=== PATIENT | male | born 1955 ===

== ENCOUNTER 2018-07-18 06:08 | Day surgery (SDC) | payer BC ==
[2018-06-22 10:07] VITALS: BMI 25.0
[2018-07-18] MEDS ORDERED: ceFAZolin 1 gm in NS 1 GM/100 ML BAG IVPB ONE (06:58)
[2018-07-18] MEDS ORDERED: Iohexol 240 (50 ml) ONE (06:58)
[2018-07-18] MEDS ORDERED: Propofol 10 mg/ml Inj (20 ML) ONE (07:50)
[2018-07-18] MEDS ORDERED: Midazolam 2 MG/2 ML VIAL ONE (07:50)
[2018-07-18] MEDS ORDERED: Succinylcholine Chloride 20 mg/ml Syr (5 ml) IV ONE (07:52)
--- NOTE | 2018-07-18 09:59 | PCM.SURG1 ---
Surgeon's Initial Post Op Note - Surgeon's Notes Surgeon: Dr. Davidson Director Traffic And Planning: Estela PGY2 Type of Anesthesia: General Endo Anesthesia Administered By: Dr. Lewis Pre-Operative Diagnosis: Cholelithiasis, chronic cholecystitis Operative Findings: Cholelithiasis, adhesions to liver Post-Operative Diagnosis: Cholelithiasis, chronic cholecystitis Operation Performed: Laparoscopic Cholecystectomy with IOC Specimen/Specimens Removed: Gallbladder with stones Estimated Blood Loss: EBL {In ML}: 10 Blood Products Given: N/A Drains Used: No Drains Post-Op Condition: Good Date of Surgery/Procedure: 07/18/18 Time of Surgery/Procedure: 09:59
[2018-07-18] MEDS ORDERED: Oxycodone/Acetaminophen 5/325 mg Tab PO PRN (10:00)
[2018-07-18] MEDS ORDERED: Lactated Ringer's 1,000 ML IV SCH (10:00)
[2018-07-18] MEDS: HYDROmorphone 0.5 mg/0.5 ml ISec IVP PRN ×3 (10:15→10:32)
[2018-07-18] MEDS ORDERED: Lactated Ringer's 1,000 ML IV ONE (10:25)
[2018-07-18 11:44] VITALS: RESP 18; O2SAT 95
--- NOTE | 2018-07-18 15:15 | RAD ---
Date of service: 07/18/2018 PROCEDURE: Intraoperative Fluoroscopy. HISTORY: CHOLECYSTITIS FINDINGS: Fluoroscopic assistance was provided for intraoperative cholangiogram. Please refer to the operative report from MITA Ross. Total fluoroscopic time (continuous mode) utilized during the procedure 49.2 seconds. Dose report: DLP [id number] (mGy/m2)
[2018-07-18 15:48] VITALS: BP 154/86; PULSE 82; TEMP 98
--- NOTE | 2018-07-18 20:45 | OP ---
PROCEDURE DATE: 07/18/2018 PREOPERATIVE DIAGNOSES: Cholecystitis, cholelithiasis. POSTOPERATIVE DIAGNOSES: Cholecystitis, cholelithiasis. PROCEDURE CARRIED OUT: Laparoscopic cholecystectomy with C-arm cholangiogram. SURGEON: Emmett Davidson Jr., MD HAND COPER: Alfred Palmer DO ANESTHESIA ADMINISTERED BY: . INDICATIONS: The patient is a middle-aged man with abdominal pain and subsequently found to have gallstones. OPERATIVE FINDINGS: 1. A cholangiogram carried out through the cystic duct showed free flow into the duodenum, visualization of the hepatic radicles, and no evidence of any stones or strictures. 2. The gallbladder was slightly inflamed with adhesions around it. 3. During the operation, there was spillage of stones from the gallbladder during its removal, these were diligently searched for and many of these retrieved in the suction fluid. The rest of the intraoperative findings were unremarkable. DESCRIPTION OF PROCEDURE: The patient was given general anesthesia, intravenous antibiotics, and Venodyne boots were applied. A Tanya trocar was inserted by a put-down technique. Two additional trocars were placed. The cystic duct and cystic artery were identified. After completion of the view of safety, these were clipped. An additional structure to the side which was thickened peritoneum, was also clipped. After this had been done, the gallbladder was removed. As I mentioned, there was spillage of bile and stones which were thoroughly irrigated and all the stones searched for and suctioned or actually physically retrieved. We then checked the liver bed for hemostasis which was excellent. We then removed the gallbladder from the abdominal wall in a bag and then we used the closure device to close the umbilicus for an airtight closure. Blood loss was less than 20 mL. OPERATION CARRIED OUT: Laparoscopic cholecystectomy with C-arm cholangiogram. Emmett Davidson Jr., MD cc:
== END 2018-07-18 15:20 | disposition home or self-care (01) ==
LOC: C.SDS 06:08
PROVIDERS: ATTEND Surgery Vascular Surgery
DX: K80.10 Calculus of gallbladder with chronic cholecystitis without obstruction (principal); I10 Essential (primary) hypertension; E78.5 Hyperlipidemia, unspecified; G47.33 Obstructive sleep apnea (adult) (pediatric)
CPT/HCPCS: 47563; 88304; J0690; J1170; J2250; J2405; J2704; J2765; J3010; J7040; J7120

== ENCOUNTER 2018-07-20 05:42 | Inpatient (IN) | payer BC ==
[2018-07-20 05:42] VITALS: BMI 25.0
--- NOTE | 2018-07-20 05:48 | C.PDOC ---
History Of Present Illness Patient presents to the ED c/o severe RUQ abdominal pain since last night. Patient reports having cholecystectomy done on 07/18, states last night he started feeling severe abdominal pain that did not get better after taking percocet. Patient denies fever, chills, nausea, vomit, diarrhea, rash, weakness, numbness. Time Seen by Provider: 07/20/18 05:47 History Per: Patient History/Exam Limitations: no limitations Onset/Duration Of Symptoms: Hrs Current Symptoms Are (Timing): Still Present Severity: Severe Pain Scale Rating Of: 7 Location Of Pain/Discomfort: RUQ Quality Of Discomfort: Sharp, Stabbing Associated Symptoms: denies: Nausea, Vomiting, Urinary Symptoms Recent travel outside of the [place]: No Additional History Per: Patient Past Medical History Reviewed: Historical Data, Nursing Documentation, Vital Signs - Medical History PMH: Asthma, Gall Bladder Disease, HTN, Hypercholesterolemia, Sleep Apnea (does not use c pap), TIA (3 years ago ) Denies: Chronic Kidney Disease Surgical History: Cholecystectomy Family History: States: Unknown Family Hx - Social History Hx Tobacco Use: No Hx Alcohol Use: No Hx Substance Use: No Review Of Systems Constitutional: Negative for: Fever, Chills Cardiovascular: Negative for: Chest Pain Respiratory: Negative for: Shortness of Breath Gastrointestinal: Positive for: Abdominal Pain. Negative for: Nausea, Vomiting Genitourinary: Negative for: Dysuria Musculoskeletal: Negative for: Back Pain Skin: Negative for: Rash Neurological: Negative for: Weakness, Numbness, Headache Physical Exam - Physical Exam Appears: Non-toxic, In Acute Distress Skin: Warm, Dry Head: Normacephalic Eye(s): bilateral: Normal Inspection Neck: Supple Chest: Symmetrical Cardiovascular: Rhythm Regular Respiratory: No Rales, No Rhonchi, No Wheezing Gastrointestinal/Abdominal: Soft, Tenderness (RUQ), No Guarding, No Rebound Back: No CVA Tenderness Extremity: Bilateral: Atraumatic, Normal Color And Temperature, Normal ROM Neurological/Psych: Oriented x3, Normal Speech, Normal Cognition Gait: Steady ED Course And Treatment - Laboratory Results Result Diagrams: 07/20/18 06:28 ECG: Interpreted By Me, Viewed By Me ECG Rhythm: Sinus Rhythm (81), Nonspecific Changes O2 Sat by Pulse Oximetry: 96 Pulse Ox Interpretation: Normal Progress Note: PLan: - VBG. - Labs. - Morphine 2 mg IVP. - IV fluids. - Zofran 4 mg IVP. - UA Disposition Counseled Patient/Family Regarding: Studies Performed, Diagnosis - Disposition Disposition Time: 05:48 Condition: FAIR - Clinical Impression Clinical Impression: Abdominal pain - Scribe Statement The provider has reviewed the documentation as recorded by the Scribe Josiah Hernandez All medical record entries made by the Scribe were at my direction and personally dictated by me. I have reviewed the chart and agree that the record accurately reflects my personal performance of the history, physical exam, medical decision making, and the department course for this patient. I have also personally directed, reviewed, and agree with the discharge instructions and disposition. Physician Patient Turnover Patient Signed Over To: Olga Lora Handoff Comments: pending labs, surgical consult and dispo
[2018-07-20] MEDS ORDERED: Sodium Chloride 0.9% 1,000 ML IV ONE (05:53)
[2018-07-20] MEDS ORDERED: Morphine 4 MG/ML VIAL ONE ×2 (06:12→07:35)
[2018-07-20 06:28] LABS: VENOUS BLOOD GAS BASE EXCESS -0.4 mmol/L (0.0-2.0); VENOUS BLOOD GAS PCO2 45 mmHg (40-60); VENOUS BLOOD GAS PO2 39 mm/Hg (30-55); VENOUS BLOOD PH 7.36 (7.32-7.43)
[2018-07-20 06:33] LABS: BASO # 0.1 K/uL (0.0-0.2); BASO % 0.4 % (0.0-2.0); EOS % 0.2 % (0.0-4.0); HEMOGLOBIN 15.1 g/dL (12.0-18.0); LYMPH # 0.9 K/uL (1.0-4.3); LYMPH % 5.7 % (20.0-40.0); MEAN CELL VOLUME 88.7 fL (80.0-94.0); MEAN CORPUSCULAR HEMOGLOBIN 28.6 pg (27.0-31.0); MEAN CORPUSCULAR HGB CONC 32.2 g/dL (33.0-37.0); MEAN PLATELET VOLUME 8.5 fL (7.2-11.7); MONO # 0.9 K/uL (0.0-0.8); MONO % 5.6 % (0.0-10.0); NEUT # 13.3 K/uL (1.8-7.0); NEUT % 88.1 % (50.0-75.0); PLATELET COUNT 171 K/uL (130-400); RBC 5.29 Mil/uL (4.40-5.90); RED CELL DISTRIBUTION WIDTH 14.2 % (11.5-14.5); WHITE BLOOD COUNT 15.1 K/uL (4.8-10.8)
[2018-07-20 06:52] LABS: BLOOD UREA NITROGEN 18 mg/dL (9-20); CALCIUM 9.2 mg/dl (8.6-10.4); GFR NON-AFRICAN AMERICAN > 60; LIPASE 44 U/L (23-300)
[2018-07-20 06:53] LABS: ALB/GLOB RATIO 1.2 (1.0-2.1); ALBUMIN 4.1 g/dL (3.5-5.0); ALT/SGPT 66 U/L (21-72); AST/SGOT 97 U/L (17-59)
[2018-07-20 07:50] LABS: EOSINOPHIL 1 % (0-4); LYMPHOCYTE 5 % (20-40); MONOCYTE 6 % (0-10); NEUTROPHIL 88 % (50-75); PLATELET ESTIMATE NORMAL (NORMAL); TOTAL CELLS COUNTED 100
[2018-07-20 08:21] LABS: SQUAMOUS EPITHIAL < 1 /hpf (0-5); URINE BILIRUBIN NEGATIVE (NEGATIVE); URINE BLOOD 1+ (NEGATIVE); URINE CLARITY Clear (Clear); URINE COLOR Yellow (YELLOW); URINE GLUCOSE (UA) NORMAL (Normal); URINE LEUKOCYTE ESTERASE NEG Leu/uL (Negative); URINE PROTEIN 1+ mg/dL (NEGATIVE)
[2018-07-20] MEDS ORDERED: Iodixanol 320 MG/ML 100 ML BOTTLE IV ONE (08:32)
--- NOTE | 2018-07-20 09:52 | CT ---
Date of service: 07/20/2018 PROCEDURE: CT Abdomen and Pelvis with contrast HISTORY: POSTOP PAIN AFTER LAP CHOLEY COMPARISON: None. TECHNIQUE: Following oral and intravenous contrast administration, a CT examination of the abdomen and pelvis was performed from the domes of the diaphragms to the symphysis pubis with reformatted datasets provided not only axial but also sagittal and coronal series. Contrast dose: Visipaque 320, 100 cc Radiation dose: Total exam DLP = 374.95 mGy-cm. This CT exam was performed using one or more of the following dose reduction techniques: Automated exposure control, adjustment of the mA and/or kV according to patient size, and/or use of iterative reconstruction technique. FINDINGS: LOWER THORAX: Small right pleural effusion evident with likely compressive atelectasis related. Limited bilateral basilar dependent atelectasis also present. Small hiatal hernia identified. LIVER: 1.1 cm lucency near the dome liver medially with a 0.5 cm lucency at the right lobe more inferiorly. 1.3 cm lucency supra posterior to the gallbladder fossa. These may be cysts statistically but ultimately indeterminate. Sub cm foci are too small to characterize. Trace periportal edema appreciated particularly at the uday hepatis, presumably post-operative. GALLBLADDER AND BILE DUCTS: Prior cholecystectomy now evident. Reactive changes seen in the gallbladder fossa extending into the right para renal space with some right perirenal reaction appreciated as well. Trace left perirenal streaky change is also appreciated as a nonspecific finding. 1.8 cm cyst is seen at the upper pole left kidney medially with the bilateral kidneys otherwise unremarkable. Limited perisplenic fluid is appreciated peripheral enhancement. No free air or prominent peritoneal fluid collection appreciable. PANCREAS: Unremarkable. No gross lesion or ductal dilatation. SPLEEN: See gallbladder section above. ADRENALS: Unremarkable. No mass. KIDNEYS AND URETERS: See gallbladder section above. VASCULATURE: Unremarkable. No aortic aneurysm. No aortic atherosclerotic calcification or mural plaque present. BOWEL: Trace perirectal fluid is seen with the rectum and distal sigmoid collapsed and poorly evaluated. Intrinsic mural thickening not excluded. Clinically correlate further. No obstruction. No gross mural thickening. APPENDIX: Normal appendix. PERITONEUM: See gallbladder section above. LYMPH NODES: Unremarkable. No enlarged lymph nodes. BLADDER: Unremarkable. REPRODUCTIVE: Enlarged prostate gland. BONES: No acute fracture. OTHER FINDINGS: None. IMPRESSION: Prior cholecystectomy is appreciated with likely related minimal central periportal edema, perisplenic ascites and trace asymmetric right perirenal reaction with CBD normal caliber. Trace fluid is noted in the pelvis to the right of the rectum. Rectum and distal sigmoid are collapsed limiting evaluation of potential mural thickening. No obvious abscess is appreciated and there is no free intra peritoneal gas collection or large fluid collection. No peritoneal abscess identified including at the gallbladder fossa. Fluid distribution near the spleen is felt to be unlikely reflect bile leak given lack of local fluid at the gallbladder fossa and right tucker abdomen, however, if this is a clinical consideration then follow-up nuclear hepatobiliary scan can be performed.
[2018-07-20] MEDS ORDERED: Piperacillin/Tazobact 3.375 gm 100 ML IVPB STA (10:33)
[2018-07-20] MEDS ORDERED: Piperacillin/Tazobact 3.375 gm 100 ML IVPB ONE (10:40)
--- NOTE | 2018-07-20 11:25 | CP.PCM.HP ---
History of Present Illness - History of Present Illness History of Present Illness: General Surgery H&P for Dr. Davidson cc: abd pain, leukocytosis, hyperbilirubinemia 63M with PMH that includes s/p lap cholecystectomy, HTN, TIA presents to [facility] for complaint of abd pain. Patient seen and evaluated in the ED. Patient had lap cholecystectomy on 07/18. Patient tolerated procedure without any apparent complications and was discharged home the same day. Patient went home and stated that he developd abd pain yesterday with subjective fever. Patient decided to wait to see if it improved but it did not so he came to the ED. Patient had CT which was unremarkable except for small fluid near spleen (see full report). L abs revealed leukocytosis and elevated total bilirubin. HIDA was ordered. Denies cp, SOB, nausea/vomiting, diarrhea, constipation. PMH: Asthma, HTN, Hypercholesterolemia, Sleep Apnea (does not use c pap), TIA (3 years ago) PSH: Cholecystectomy ALL: nickel Present on Admission - Present on Admission Any Indicators Present on Admission: No History of DVT/PE: No History of Uncontrolled Diabetes: No Urinary Catheter: No Decubitus Ulcer Present: No Review of Systems - Review of Systems All systems: reviewed and no additional remarkable complaints except (as per HPI) Past Patient History - Infectious Disease Hx of Infectious Diseases: None - Past Medical History & Family History Past Medical History?: Yes - Past Social History Smoking Status: Never Smoked - CARDIAC Hx Hypercholesterolemia: Yes Hx Hypertension: Yes - PULMONARY Hx Asthma: Yes Hx Sleep Apnea: Yes (does not use c pap) - NEUROLOGICAL Hx Transient Ischemic Attacks (TIA): Yes (3 years ago ) - HEENT Hx HEENT Problems: No - RENAL Hx Chronic Kidney Disease: No - ENDOCRINE/METABOLIC Hx Endocrine Disorders: No - HEMATOLOGICAL/ONCOLOGICAL Hx Blood Disorders: No - INTEGUMENTARY Hx Dermatological Problems: Yes Hx Psoriasis: Yes - MUSCULOSKELETAL/RHEUMATOLOGICAL Hx Musculoskeletal Disorders: No - GASTROINTESTINAL Hx Gall Bladder Disease: Yes - GENITOURINARY/GYNECOLOGICAL Hx Genitourinary Disorders: No - PSYCHIATRIC Hx Substance Use: No - SURGICAL HISTORY Hx Cholecystectomy: Yes - ANESTHESIA Hx Anesthesia: Yes Hx Anesthesia Reactions: No Hx Malignant Hyperthermia: No Meds Allergies/Adverse Reactions: Allergies Allergy/AdvReac Type Severity Reaction Status Date / Time nickel Allergy RASH Verified 06/22/18 10:07 Physical Exam - Constitutional Appears: No Acute Distress - Head Exam Head Exam: ATRAUMATIC, NORMAL INSPECTION, NORMOCEPHALIC - Eye Exam Eye Exam: EOMI, Normal appearance Pupil Exam: PERRL - ENT Exam ENT Exam: Mucous Membranes Moist - Respiratory Exam Respiratory Exam: NORMAL BREATHING PATTERN - Cardiovascular Exam Cardiovascular Exam: REGULAR RHYTHM - GI/Abdominal Exam GI & Abdominal Exam: Firm, Normal Bowel Sounds, Rebound, Soft, Tenderness. absent: Distended, Guarding, Hernia, Rigid Additional comments: surgical site with dressings clean dry and intact - Rectal Exam Rectal Exam: Deferred - Extremities Exam Extremities exam: Positive for: normal capillary refill, pedal pulses present. Negative for: calf tenderness - Back Exam Back exam: absent: CVA tenderness (L), CVA tenderness (R) - Neurological Exam Neurological exam: Alert, CN II-XII Intact, Oriented x3 - Psychiatric Exam Psychiatric exam: Normal Affect, Normal Mood - Skin Skin Exam: Dry, Intact, Warm Results - Vital Signs Recent Vital Signs: Last Vital Signs Temp 98.8 F 07/20/18 09:11 Pulse 88 07/20/18 09:11 Resp 18 07/20/18 09:11 BP 143/83 07/20/18 09:11 Pulse Ox 98 07/20/18 09:11 - Labs Result Diagrams: 07/20/18 06:28 07/20/18 06:28 Labs: Laboratory Results - last 24 hr 07/20/18 07/20/18 07/20/18 06:20 06:28 06:28 WBC 15.1 H RBC 5.29 Hgb 15.1 Hct 46.9 MCV 88.7 MCH 28.6 MCHC 32.2 L RDW 14.2 Plt Count 171 MPV 8.5 Neut % (Auto) 88.1 H Lymph % (Auto) 5.7 L [place] % (Auto) 5.6 Eos % (Auto) 0.2 Baso % (Auto) 0.4 Neut # (Auto) 13.3 H Lymph # (Auto) 0.9 L [place] # (Auto) 0.9 H Eos # (Auto) 0.0 Baso # (Auto) 0.1 Neutrophils % (Manual) 88 H Lymphocytes % (Manual) 5 L Monocytes % (Manual) 6 Eosinophils % (Manual) 1 Platelet Estimate Normal pO2 39 VBG pH 7.36 VBG pCO2 45 VBG HCO3 23.9 VBG Total CO2 26.8 VBG O2 Sat (Calc) 77.7 H VBG Base Excess -0.4 L VBG Potassium 3.7 Sodium 136.0 133 Chloride 103.0 102 Glucose 129 H Lactate 1.7 Potassium 5.7 H Carbon Dioxide 24 Anion Gap 13 BUN 18 Creatinine 1.0 Est GFR ( Amer) > 60 Est GFR (Non-Af Amer) > 60 Random Glucose 130 H Calcium 9.2 Total Bilirubin 2.1 H AST 97 H ALT 66 Alkaline Phosphatase 73 Total Protein 7.4 Albumin 4.1 Globulin 3.3 Albumin/Globulin Ratio 1.2 Lipase 44 Venous Blood Potassium 3.7 Urine Color Urine Clarity Urine pH Ur Specific [place] Urine Protein Urine Glucose (UA) Urine Ketones Urine Blood Urine Nitrate Urine Bilirubin Urine Urobilinogen Ur Leukocyte Esterase Urine WBC (Auto) Urine RBC (Auto) Ur Squamous Epith Cells 07/20/18 07:58 WBC RBC Hgb Hct MCV MCH MCHC RDW Plt Count MPV Neut % (Auto) Lymph % (Auto) [place] % (Auto) Eos % (Auto) Baso % (Auto) Neut # (Auto) Lymph # (Auto) [place] # (Auto) Eos # (Auto) Baso # (Auto) Neutrophils % (Manual) Lymphocytes % (Manual) Monocytes % (Manual) Eosinophils % (Manual) Platelet Estimate pO2 VBG pH VBG pCO2 VBG HCO3 VBG Total CO2 VBG O2 Sat (Calc) VBG Base Excess VBG Potassium Sodium Chloride Glucose Lactate Potassium Carbon Dioxide Anion Gap BUN Creatinine Est GFR ( Amer) Est GFR (Non-Af Amer) Random Glucose Calcium Total Bilirubin AST ALT Alkaline Phosphatase Total Protein Albumin Globulin Albumin/Globulin Ratio Lipase Venous Blood Potassium Urine Color Yellow Urine Clarity Clear Urine pH 5.0 Ur Specific [place] 1.024 Urine Protein 1+ H Urine Glucose (UA) Normal Urine Ketones 1+ H Urine Blood 1+ H Urine Nitrate Negative Urine Bilirubin Negative Urine Urobilinogen 2.0 Ur Leukocyte Esterase Neg Urine WBC (Auto) 3 Urine RBC (Auto) 7 H Ur Squamous Epith Cells < 1 Assessment & Plan - Assessment and Plan (Free Text) Assessment: 63 s/p lap cholecystectomy POD#2 who presents with abd pain, leukocytosis, hyperbilirubinemia with negative HIDA scan Plan: -Regular diet -Resume home meds -IV abx -Pain control -hyperkalemia cocktail -f/u CMP at 5pm -Discussed with Dr. Stuart Palmer PGY2 - Date & Time Date: 07/20/18 Time: 11:25
[2018-07-20] MEDS ORDERED: Lactated Ringer's 1,000 ML IV SCH (11:30)
[2018-07-20] MEDS ORDERED: Dextrose 50% SYRINGE Inj (50 ml) IV STA (14:00)
--- NOTE | 2018-07-20 14:28 | NM ---
Date of service: 07/20/2018 PROCEDURE: Nuclear Medicine Hepatobiliary Scan HISTORY: S/P CHOLEY, PAIN, ELEVATED TBILI COMPARISON: 07/20/2018. CT abdomen and pelvis. TECHNIQUE: 6.2 mCi of technetium 99m Mebrofenin was administered intravenously. Planar images of the abdomen were obtained at 5 min intervals to 60 mins. Delayed images were also obtained. FINDINGS: LIVER: Timely and homogenous uptake. COMMON BILE DUCT: identified at 15 mins. GALLBLADDER: Status post laparoscopic cholecystectomy. No abnormalities in the gallbladder fossa. No evidence of bile leak. SMALL BOWEL: Identified at 30 mins. IMPRESSION: Status post cholecystectomy. Unremarkable hepatobiliary scan. Specifically no evidence of bile duct leak or other acute/significant pathologic process.
[2018-07-20] MEDS ORDERED: (Novolin R) Insulin Human Regular 100 units/ml vial SC ONE (14:30)
[2018-07-20] MEDS ORDERED: Calcium Gluconate 4.65 MEQ in Dextrose 5% In Water 100 ML IV ONE (14:45)
[2018-07-20] MEDS: Docusate-Senna 50 mg-8.6 mg Tab PO SCH (14:52)
[2018-07-20] MEDS ORDERED: Albuterol HFA 90 mcg/actuation (8 g) IH PRN (15:25)
[2018-07-20 17:47] LABS: ALB/GLOB RATIO 1.3 (1.0-2.1); ALBUMIN 3.6 g/dL (3.5-5.0); ALT/SGPT 73 U/L (21-72); AST/SGOT 54 U/L (17-59); BLOOD UREA NITROGEN 13 mg/dL (9-20); CALCIUM 9.4 mg/dl (8.6-10.4); GFR NON-AFRICAN AMERICAN > 60
[2018-07-20] MEDS: Piperacill/Tazo 3.375gm in Dex 3.375 GM/50 ML BAG IVPB SCH ×2 (19:30→23:00)
[2018-07-21] MEDS: Piperacill/Tazo 3.375gm in Dex 3.375 GM/50 ML BAG IVPB SCH ×4 (04:45→22:03)
[2018-07-21 06:33] LABS: BASO % 0.3 % (0.0-2.0); EOS # 0.1 K/uL (0.0-0.7); EOS % 1.7 % (0.0-4.0); HEMOGLOBIN 13.4 g/dL (12.0-18.0); LYMPH # 1.1 K/uL (1.0-4.3); LYMPH % 13.1 % (20.0-40.0); MEAN CELL VOLUME 87.2 fL (80.0-94.0); MEAN CORPUSCULAR HGB CONC 33.3 g/dL (33.0-37.0); MEAN PLATELET VOLUME 8.4 fL (7.2-11.7); MONO # 0.7 K/uL (0.0-0.8); MONO % 8.1 % (0.0-10.0); NEUT # 6.6 K/uL (1.8-7.0); NEUT % 76.8 % (50.0-75.0); RBC 4.63 Mil/uL (4.40-5.90); RED CELL DISTRIBUTION WIDTH 14.4 % (11.5-14.5); WHITE BLOOD COUNT 8.6 K/uL (4.8-10.8)
[2018-07-21 06:42] LABS: ALB/GLOB RATIO 1.2 (1.0-2.1); ALBUMIN 3.4 g/dL (3.5-5.0); ALT/SGPT 63 U/L (21-72); AST/SGOT 42 U/L (17-59); BLOOD UREA NITROGEN 16 mg/dL (9-20); CALCIUM 9.3 mg/dl (8.6-10.4); GFR NON-AFRICAN AMERICAN > 60
[2018-07-21] MEDS: Magnesium Hydroxide Susp 30 ml UD PO SCH (09:48)
[2018-07-21] MEDS: Docusate-Senna 50 mg-8.6 mg Tab PO SCH (09:49)
[2018-07-21] MEDS: Pantoprazole 40 mg EC Tab PO SCH (09:49)
[2018-07-21] MEDS: Enoxaparin 40 mg Syringe SC SCH (09:53)
--- NOTE | 2018-07-21 12:38 | CARD ---
APPROVED REPORT Date of service: 07/20/2018 EKG Measurement Heart [id number] <Conclusion> Normal sinus rhythm Possible Left atrial enlargement Borderline ECG
--- NOTE | 2018-07-21 18:28 | CP.PCM.PN ---
Subjective - Date & Time of Evaluation Date of Evaluation: 07/21/18 Time of Evaluation: 07:30 - Subjective Subjective: General Surgery Note for Dr. Davidson Patient seen and examined at bedside. No acute event overnight. Patient feels great today. He is tolerating diet. +flatus and +bm. Denies fever/chills or nausea/vomiting. Objective - Vital Signs/Intake and Output Vital Signs (last 24 hours): Temp Pulse Resp BP Pulse Ox 98.3 F 79 20 117/69 95 07/21/18 15:40 07/21/18 15:40 07/21/18 15:40 07/21/18 15:40 07/21/18 15:40 Intake and Output: 07/21/18 07/21/18 06:59 18:59 Intake Total 590 Balance 590 - Medications Medications: Current Medications Albuterol (Ventolin Hfa 90 Mcg/Actuation (8 G)) 1 puff IH Q6H PRN PRN Reason: Shortness of Breath Aspirin (Ecotrin) 81 mg PO DAILY [facility] Last Admin: 07/21/18 09:47 Dose: 81 mg Docusate Sodium (Colace) 100 mg PO DAILY [facility] Last Admin: 07/21/18 09:47 Dose: 100 mg Enoxaparin Sodium (Lovenox) 40 mg SC DAILY [facility] Last Admin: 07/21/18 09:53 Dose: 40 mg Piperacillin Sod/Tazobactam Sod (Zosyn 3.375 Gm Iv Premix) 3.375 gm in 50 mls @ 100 mls/hr IVPB Q6H [facility]; Protocol Last Admin: 07/21/18 17:14 Dose: 100 mls/hr Magnesium Hydroxide (Milk Of Magnesia) 30 ml PO DAILY [facility] Last Admin: 07/21/18 09:48 Dose: 30 ml Morphine Sulfate (Morphine) 2 mg IVP Q4 PRN PRN Reason: Pain, severe (8-10) Last Admin: 07/20/18 17:36 Dose: 2 mg Nebivolol (Bystolic) 10 mg PO DAILY [facility] Last Admin: 07/21/18 09:46 Dose: 10 mg Ondansetron HCl (Zofran Inj) 4 mg IVP Q6H PRN PRN Reason: Nausea/Vomiting Pantoprazole Sodium (Protonix Ec Tab) 40 mg PO DAILY [facility] Last Admin: 07/21/18 09:49 Dose: 40 mg Pneumococcal Polyvalent Vaccine (Pneumovax 23 Vaccine) 0.5 ml IM .ONCE ONE Stop: 07/23/18 10:01 Rosuvastatin Calcium (Crestor) 20 mg PO HS [facility] Senna/Docusate Sodium (Senokot S 50 Mg-8.6 Mg) 1 tab PO DAILY [facility] Last Admin: 07/21/18 09:49 Dose: 1 tab - Labs Labs: 07/21/18 06:23 07/21/18 06:23 - Additional Findings Additional findings: - Constitutional Appears: No Acute Distress - Head Exam Head Exam: ATRAUMATIC, NORMAL INSPECTION, NORMOCEPHALIC - Eye Exam Eye Exam: EOMI, Normal appearance Pupil Exam: PERRL - ENT Exam ENT Exam: Mucous Membranes Moist - Respiratory Exam Respiratory Exam: NORMAL BREATHING PATTERN - Cardiovascular Exam Cardiovascular Exam: REGULAR RHYTHM - GI/Abdominal Exam GI & Abdominal Exam: Firm, Normal Bowel Sounds, Rebound, Soft, Tenderness. absent: Distended, Guarding, Hernia, Rigid Additional comments: surgical site with dressings clean dry and intact - Rectal Exam Rectal Exam: Deferred - Extremities Exam Extremities exam: Positive for: normal capillary refill, pedal pulses present. Negative for: calf tenderness - Back Exam Back exam: absent: CVA tenderness (L), CVA tenderness (R) - Neurological Exam Neurological exam: Alert, CN II-XII Intact, Oriented x3 - Psychiatric Exam Psychiatric exam: Normal Affect, Normal Mood - Skin Skin Exam: Dry, Intact, Warm Assessment and Plan - Assessment and Plan (Free Text) Assessment: 63 s/p lap cholecystectomy POD#3 who presents with abd pain, leukocytosis, hyperbilirubinemia with negative HIDA scan Plan: -Regular diet -leukocytosis resolved -Patient asymptomatic -Planning for DC 07/22 -Discussed with Dr. Stuart Palmer PGY2
[2018-07-22] MEDS: Piperacill/Tazo 3.375gm in Dex 3.375 GM/50 ML BAG IVPB SCH ×4 (05:40→22:03)
[2018-07-22 07:52] LABS: BASO # 0.1 K/uL (0.0-0.2); BASO % 0.6 % (0.0-2.0); EOS # 0.1 K/uL (0.0-0.7); HEMOGLOBIN 13.1 g/dL (12.0-18.0); LYMPH # 0.8 K/uL (1.0-4.3); LYMPH % 8.3 % (20.0-40.0); MEAN CORPUSCULAR HEMOGLOBIN 29.5 pg (27.0-31.0); MEAN CORPUSCULAR HGB CONC 33.9 g/dL (33.0-37.0); MEAN PLATELET VOLUME 8.1 fL (7.2-11.7); MONO # 0.7 K/uL (0.0-0.8); MONO % 6.8 % (0.0-10.0); NEUT # 8.5 K/uL (1.8-7.0); NEUT % 83.3 % (50.0-75.0); PLATELET COUNT 198 K/uL (130-400); RBC 4.44 Mil/uL (4.40-5.90); RED CELL DISTRIBUTION WIDTH 13.9 % (11.5-14.5); WHITE BLOOD COUNT 10.2 K/uL (4.8-10.8)
[2018-07-22 08:04] LABS: BLOOD UREA NITROGEN 17 mg/dL (9-20); CALCIUM 9.1 mg/dl (8.6-10.4); GFR NON-AFRICAN AMERICAN > 60
--- NOTE | 2018-07-22 08:19 | CP.PCM.PN ---
Subjective - Date & Time of Evaluation Date of Evaluation: 07/22/18 Time of Evaluation: 07:18 - Subjective Subjective: General Surgery: Dr. Davidson Patient seen and examined this am at bedside. pt had increased pain overnight that was well con trolled with pain medication. +BM and flatus, denies f/c, n/v tolerating diet. 12 ROS otherwise negative Objective - Vital Signs/Intake and Output Vital Signs (last 24 hours): Temp Pulse Resp BP Pulse Ox 98.5 F 76 20 102/64 96 07/22/18 07:41 07/22/18 07:41 07/22/18 07:41 07/22/18 07:41 07/22/18 07:41 Intake and Output: 07/22/18 07/22/18 06:59 18:59 Intake Total 250 Balance 250 - Medications Medications: Current Medications Albuterol (Ventolin Hfa 90 Mcg/Actuation (8 G)) 1 puff IH Q6H PRN PRN Reason: Shortness of Breath Aspirin (Ecotrin) 81 mg PO DAILY [facility] Last Admin: 07/21/18 09:47 Dose: 81 mg Docusate Sodium (Colace) 100 mg PO DAILY [facility] Last Admin: 07/21/18 09:47 Dose: 100 mg Enoxaparin Sodium (Lovenox) 40 mg SC DAILY [facility] Last Admin: 07/21/18 09:53 Dose: 40 mg Piperacillin Sod/Tazobactam Sod (Zosyn 3.375 Gm Iv Premix) 3.375 gm in 50 mls @ 100 mls/hr IVPB Q6H [facility]; Protocol Last Admin: 07/22/18 05:40 Dose: 100 mls/hr Magnesium Hydroxide (Milk Of Magnesia) 30 ml PO DAILY [facility] Last Admin: 07/21/18 09:48 Dose: 30 ml Morphine Sulfate (Morphine) 2 mg IVP Q4 PRN PRN Reason: Pain, severe (8-10) Last Admin: 07/21/18 21:45 Dose: 2 mg Nebivolol (Bystolic) 10 mg PO DAILY [facility] Last Admin: 07/21/18 09:46 Dose: 10 mg Ondansetron HCl (Zofran Inj) 4 mg IVP Q6H PRN PRN Reason: Nausea/Vomiting Pantoprazole Sodium (Protonix Ec Tab) 40 mg PO DAILY [facility] Last Admin: 07/21/18 09:49 Dose: 40 mg Pneumococcal Polyvalent Vaccine (Pneumovax 23 Vaccine) 0.5 ml IM .ONCE ONE Stop: 07/23/18 10:01 Rosuvastatin Calcium (Crestor) 20 mg PO HS [facility] Last Admin: 07/21/18 21:38 Dose: 20 mg Senna/Docusate Sodium (Senokot S 50 Mg-8.6 Mg) 1 tab PO DAILY [facility] Last Admin: 07/21/18 09:49 Dose: 1 tab - Labs Labs: 07/22/18 07:45 07/22/18 07:45 - Constitutional Appears: Well, Non-toxic, No Acute Distress - Head Exam Head Exam: ATRAUMATIC, NORMOCEPHALIC - Eye Exam Eye Exam: EOMI - ENT Exam ENT Exam: Mucous Membranes Moist - Respiratory Exam Respiratory Exam: NORMAL BREATHING PATTERN - Cardiovascular Exam Cardiovascular Exam: REGULAR RHYTHM - GI/Abdominal Exam GI & Abdominal Exam: Soft, Tenderness (mild RUQ). absent: Firm, Guarding, Rebound Additional comments: incisions cdi - Extremities Exam Extremities Exam: absent: Calf Tenderness, Pedal Edema - Neurological Exam Neurological Exam: Alert, Awake, Oriented x3 - Psychiatric Exam Psychiatric exam: Normal Affect, Normal Mood - Skin Skin Exam: Dry, Intact, Normal Color, Warm Additional comments: incision cdi Assessment and Plan - Assessment and Plan (Free Text) Assessment: 63 yr old male s/p laparoscopic cholecystectomy, POD 4
--- NOTE | 2018-07-22 08:24 | CP.PCM.DIS ---
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 Core Measures Referral Routine Comment: Physician Instructions: for eval Reason For Exam: PMH Asthma Social Work Referral Routine Comment: for eval Physician Instructions: Reason For Exam: Macy 7 Time Spent in preparation of Discharge (in minutes): 45 Hospital Course - Lab Results Lab Results: Most Recent Lab Values WBC 10.2 K/uL (4.8-10.8) 07/22/18 07:45 RBC 4.44 Mil/uL (4.40-5.90) 07/22/18 07:45 Hgb 13.1 g/dL (12.0-18.0) 07/22/18 07:45 Hct 38.7 % (35.0-51.0) 07/22/18 07:45 MCV 87.0 fL (80.0-94.0) 07/22/18 07:45 MCH 29.5 pg (27.0-31.0) 07/22/18 07:45 MCHC 33.9 g/dL (33.0-37.0) 07/22/18 07:45 RDW 13.9 % (11.5-14.5) 07/22/18 07:45 Plt Count 198 K/uL (130-400) 07/22/18 07:45 MPV 8.1 fL (7.2-11.7) 07/22/18 07:45 Neut % (Auto) 83.3 % (50.0-75.0) H 07/22/18 07:45 Lymph % (Auto) 8.3 % (20.0-40.0) L 07/22/18 07:45 [place] % (Auto) 6.8 % (0.0-10.0) 07/22/18 07:45 Eos % (Auto) 1.0 % (0.0-4.0) 07/22/18 07:45 Baso % (Auto) 0.6 % (0.0-2.0) 07/22/18 07:45 Neut # (Auto) 8.5 K/uL (1.8-7.0) H 07/22/18 07:45 Lymph # (Auto) 0.8 K/uL (1.0-4.3) L 07/22/18 07:45 [place] # (Auto) 0.7 K/uL (0.0-0.8) 07/22/18 07:45 Eos # (Auto) 0.1 K/uL (0.0-0.7) 07/22/18 07:45 Baso # (Auto) 0.1 K/uL (0.0-0.2) 07/22/18 07:45 Neutrophils % (Manual) 88 % (50-75) H 07/20/18 06:28 Lymphocytes % (Manual) 5 % (20-40) L 07/20/18 06:28 Monocytes % (Manual) 6 % (0-10) 07/20/18 06:28 Eosinophils % (Manual) 1 % (0-4) 07/20/18 06:28 Platelet Estimate Normal (NORMAL) 07/20/18 06:28 pO2 39 mm/Hg (30-55) 07/20/18 06:20 VBG pH 7.36 (7.32-7.43) 07/20/18 06:20 VBG pCO2 45 mmHg (40-60) 07/20/18 06:20 VBG HCO3 23.9 mmol/L 07/20/18 06:20 VBG Total CO2 26.8 mmol/L (22-28) 07/20/18 06:20 VBG O2 Sat (Calc) 77.7 % (40-65) H 07/20/18 06:20 VBG Base Excess -0.4 mmol/L (0.0-2.0) L 07/20/18 06:20 VBG Potassium 3.7 mmol/L (3.6-5.2) 07/20/18 06:20 Sodium 136.0 mmol/l (132-148) 07/20/18 06:20 Chloride 103.0 mmol/L (98-107) 07/20/18 06:20 Glucose 129 mg/dl (75-110) H 07/20/18 06:20 Lactate 1.7 mmol/L (0.7-2.1) 07/20/18 06:20 Sodium 136 mmol/L (132-148) 07/22/18 07:45 Potassium 3.8 mmol/L (3.6-5.2) 07/22/18 07:45 Chloride 104 mmol/L (98-107) 07/22/18 07:45 Carbon Dioxide 30 mmol/L (22-30) 07/22/18 07:45 Anion Gap 6 (10-20) L 07/22/18 07:45 BUN 17 mg/dL (9-20) 07/22/18 07:45 Creatinine 1.1 mg/dL (0.8-1.5) 07/22/18 07:45 Est GFR ( Amer) > 60 07/22/18 07:45 Est GFR (Non-Af Amer) > 60 07/22/18 07:45 POC Glucose (mg/dL) 119 mg/dL (65-110) H 07/20/18 16:38 Random Glucose 105 mg/dL (75-110) 07/22/18 07:45 Calcium 9.1 mg/dl (8.6-10.4) 07/22/18 07:45 Total Bilirubin 1.6 mg/dL (0.2-1.3) H 07/21/18 06:23 AST 42 U/L (17-59) 07/21/18 06:23 ALT 63 U/L (21-72) 07/21/18 06:23 Alkaline Phosphatase 88 U/L (38-126) 07/21/18 06:23 Total Protein 6.2 g/dL (6.3-8.3) L 07/21/18 06:23 Albumin 3.4 g/dL (3.5-5.0) L 07/21/18 06:23 Globulin 2.8 gm/dL (2.2-3.9) 07/21/18 06:23 Albumin/Globulin Ratio 1.2 (1.0-2.1) 07/21/18 06:23 Lipase 44 U/L (23-300) 07/20/18 06:28 Venous Blood Potassium 3.7 mmol/L (3.6-5.2) 07/20/18 06:20 Urine Color Yellow (YELLOW) 07/20/18 07:58 Urine Clarity Clear (Clear) 07/20/18 07:58 Urine pH 5.0 (5.0-8.0) 07/20/18 07:58 Ur Specific [place] 1.024 (1.003-1.030) 07/20/18 07:58 Urine Protein 1+ mg/dL (NEGATIVE) H 07/20/18 07:58 Urine Glucose (UA) Normal mg/dL (Normal) 07/20/18 07:58 Urine Ketones 1+ mg/dL (NEGATIVE) H 07/20/18 07:58 Urine Blood 1+ (NEGATIVE) H 07/20/18 07:58 Urine Nitrate Negative (NEGATIVE) 07/20/18 07:58 Urine Bilirubin Negative (NEGATIVE) 07/20/18 07:58 Urine Urobilinogen 2.0 mg/dL (0.2-1.0) 07/20/18 07:58 Ur Leukocyte Esterase Neg [place]/uL (Negative) 07/20/18 07:58 Urine WBC (Auto) 3 /hpf (0-5) 07/20/18 07:58 Urine RBC (Auto) 7 /hpf (0-3) H 07/20/18 07:58 Ur Squamous Epith Cells < 1 /hpf (0-5) 07/20/18 07:58 Discharge Exam - Head Exam Head Exam: ATRAUMATIC, NORMAL INSPECTION, NORMOCEPHALIC Discharge Plan - Follow Up Plan Condition: FAIR Disposition: HOME/ ROUTINE
[2018-07-22] MEDS: Enoxaparin 40 mg Syringe SC SCH (09:26)
[2018-07-22] MEDS: Pantoprazole 40 mg EC Tab PO SCH (09:27)
[2018-07-22] MEDS: Magnesium Hydroxide Susp 30 ml UD PO SCH (09:30)
[2018-07-22] MEDS: Docusate-Senna 50 mg-8.6 mg Tab PO SCH (09:30)
[2018-07-22 09:34] LABS: LYMPHOCYTE 8 % (20-40); MONOCYTE 7 % (0-10); NEUTROPHIL 84 % (50-75); PLATELET ESTIMATE NORMAL (NORMAL); REACTIVE LYMPHOCYTES 1 % (0-0); TOTAL CELLS COUNTED 100
--- NOTE | 2018-07-22 11:34 | CP.PCM.PN ---
Subjective - Date & Time of Evaluation Date of Evaluation: 07/22/18 Time of Evaluation: 07:20 - Subjective Subjective: General Surgery: [place] Patient doing well this morning tolerating diet, passing gas, endorses loose BM, endorse mild abdominal pain overnight well controlled with pain medication. 12 point ROS otherwise negative Objective - Vital Signs/Intake and Output Vital Signs (last 24 hours): Temp Pulse Resp BP Pulse Ox 98.5 F 76 20 102/64 96 07/22/18 07:41 07/22/18 07:41 07/22/18 07:41 07/22/18 07:41 07/22/18 07:41 Intake and Output: 07/22/18 07/22/18 06:59 18:59 Intake Total 250 Balance 250 - Medications Medications: Current Medications Albuterol (Ventolin Hfa 90 Mcg/Actuation (8 G)) 1 puff IH Q6H PRN PRN Reason: Shortness of Breath Aspirin (Ecotrin) 81 mg PO DAILY [facility] Last Admin: 07/22/18 09:27 Dose: 81 mg Docusate Sodium (Colace) 100 mg PO DAILY [facility] Last Admin: 07/22/18 09:30 Dose: Not Given Enoxaparin Sodium (Lovenox) 40 mg SC DAILY [facility] Last Admin: 07/22/18 09:26 Dose: 40 mg Piperacillin Sod/Tazobactam Sod (Zosyn 3.375 Gm Iv Premix) 3.375 gm in 50 mls @ 100 mls/hr IVPB Q6H [facility]; Protocol Last Admin: 07/22/18 11:06 Dose: 100 mls/hr Magnesium Hydroxide (Milk Of Magnesia) 30 ml PO DAILY [facility] Last Admin: 07/22/18 09:30 Dose: Not Given Morphine Sulfate (Morphine) 2 mg IVP Q4 PRN PRN Reason: Pain, severe (8-10) Last Admin: 07/21/18 21:45 Dose: 2 mg Nebivolol (Bystolic) 10 mg PO DAILY [facility] Last Admin: 07/22/18 09:27 Dose: 10 mg Ondansetron HCl (Zofran Inj) 4 mg IVP Q6H PRN PRN Reason: Nausea/Vomiting Pantoprazole Sodium (Protonix Ec Tab) 40 mg PO DAILY [facility] Last Admin: 07/22/18 09:27 Dose: 40 mg Pneumococcal Polyvalent Vaccine (Pneumovax 23 Vaccine) 0.5 ml IM .ONCE ONE Stop: 07/23/18 10:01 Rosuvastatin Calcium (Crestor) 20 mg PO [facility] Last Admin: 07/21/18 21:38 Dose: 20 mg Senna/Docusate Sodium (Senokot S 50 Mg-8.6 Mg) 1 tab PO DAILY [facility] Last Admin: 07/22/18 09:30 Dose: Not Given - Labs Labs: 07/22/18 07:45 07/22/18 07:45 - Constitutional Appears: Well, Non-toxic, No Acute Distress - Head Exam Head Exam: ATRAUMATIC, NORMOCEPHALIC - Eye Exam Eye Exam: EOMI - ENT Exam ENT Exam: Mucous Membranes Moist - Respiratory Exam Respiratory Exam: NORMAL BREATHING PATTERN - Cardiovascular Exam Cardiovascular Exam: REGULAR RHYTHM - GI/Abdominal Exam GI & Abdominal Exam: Soft. absent: Guarding, Tenderness - Extremities Exam Extremities Exam: absent: Calf Tenderness, Pedal Edema - Neurological Exam Neurological Exam: Alert, Awake, Oriented x3 - Psychiatric Exam Psychiatric exam: Normal Affect, Normal Mood - Skin Skin Exam: Dry, Intact, Normal Color, Warm
[2018-07-23] MEDS: Piperacill/Tazo 3.375gm in Dex 3.375 GM/50 ML BAG IVPB SCH ×3 (05:12→17:10)
[2018-07-23 07:54] LABS: BASO # 0.1 K/uL (0.0-0.2); BASO % 0.4 % (0.0-2.0); EOS # 0.1 K/uL (0.0-0.7); EOS % 0.5 % (0.0-4.0); HEMOGLOBIN 13.2 g/dL (12.0-18.0); LYMPH % 7.8 % (20.0-40.0); MEAN CORPUSCULAR HEMOGLOBIN 28.9 pg (27.0-31.0); MEAN CORPUSCULAR HGB CONC 33.2 g/dL (33.0-37.0); MEAN PLATELET VOLUME 8.4 fL (7.2-11.7); MONO # 0.8 K/uL (0.0-0.8); MONO % 5.9 % (0.0-10.0); NEUT % 85.4 % (50.0-75.0); PLATELET COUNT 205 K/uL (130-400); RBC 4.58 Mil/uL (4.40-5.90); RED CELL DISTRIBUTION WIDTH 13.3 % (11.5-14.5); WHITE BLOOD COUNT 12.8 K/uL (4.8-10.8)
[2018-07-23 08:16] LABS: ALB/GLOB RATIO 1.3 (1.0-2.1); ALBUMIN 3.5 g/dL (3.5-5.0); ALT/SGPT 112 U/L (21-72); AST/SGOT 69 U/L (17-59); BLOOD UREA NITROGEN 14 mg/dL (9-20); CALCIUM 8.9 mg/dl (8.6-10.4); GFR NON-AFRICAN AMERICAN > 60; LIPASE 90 U/L (23-300)
[2018-07-23] MEDS: Docusate-Senna 50 mg-8.6 mg Tab PO SCH (09:04)
[2018-07-23] MEDS: Pantoprazole 40 mg EC Tab PO SCH (09:04)
[2018-07-23] MEDS: Magnesium Hydroxide Susp 30 ml UD PO SCH (09:04)
[2018-07-23 09:15] LABS: GAMMA GLUTAMYL TRANSPEPTIDASE 148 U/L (8-78)
--- NOTE | 2018-07-23 09:29 | CP.PCM.CON ---
<Aicha Vila - Last Filed: 07/23/18 11:00> History of Present Illness - History of Present Illness History of Present Illness: PGY5 GI Initial Consult for Dr. Sue Stovall is a 63M w/ hx of HTN, HL who presented to the ED with sig abd pain s/p oupt Lap rosa. Pt noted that he was recently discharged on 07/18/2018, following the procedure. He denies any abd discomfort or pain post procedure until the evening of discharge. He noted after 1-2 hrs post dinner, he started to experience sharp 10 out of 10 pain in the periumbilical area. Pt noted that the pain was persistent for the next 1-2 days which lead him to return to the ED for further evaluation. He denies any BM post-discharge, diarrhea, fever or chills. Pt states that he only had some relief after receiving some pain medications. A HIDA was performed and did not reveal any bile leak. CT abd/Pel notes post op changes and possible liver cyst, some peripelvic fluid; no other acute findings. He was started on zosyn and GI was consulted for further eval. Pt states that he has a colonoscopy and endoscopy 2-3 years prior in [place], [place]. He does not recall the results, but was told to come back in 10 years for colonoscopy and start taking PPI daily of upper symptoms. He noted having previous intermittent GERD like symptoms in the past, but denies any dysphasia, nausea or vomiting. PMH: Asthma, HTN, Hypercholesterolemia, Sleep Apnea (does not use c pap), TIA (3 years ago) PSH: Cholecystectomy ALL: nickel Social Hx: Denies smoking, social drinker 2-3 beers on the weekends or parties; denies illicit drugs Family hx: Denies any hx of liver or GI related malign ROS: 12 point ROS conducted, neg other than above Past Patient History - Infectious Disease Hx of Infectious Diseases: None - Past Medical History & Family History Past Medical History?: Yes - Past Social History Smoking Status: Never Smoked - CARDIAC Hx Hypercholesterolemia: Yes Hx Hypertension: Yes - PULMONARY Hx Asthma: Yes Hx Sleep Apnea: Yes (does not use c pap) - NEUROLOGICAL Hx Transient Ischemic Attacks (TIA): Yes (3 years ago ) - HEENT Hx HEENT Problems: No - RENAL Hx Chronic Kidney Disease: No - ENDOCRINE/METABOLIC Hx Endocrine Disorders: No - HEMATOLOGICAL/ONCOLOGICAL Hx Blood Disorders: No - INTEGUMENTARY Hx Dermatological Problems: Yes Hx Psoriasis: Yes - MUSCULOSKELETAL/RHEUMATOLOGICAL Hx Musculoskeletal Disorders: No - GASTROINTESTINAL Hx Gall Bladder Disease: Yes - GENITOURINARY/GYNECOLOGICAL Hx Genitourinary Disorders: No - PSYCHIATRIC Hx Substance Use: No - SURGICAL HISTORY Hx Cholecystectomy: Yes - ANESTHESIA Hx Anesthesia: Yes Hx Anesthesia Reactions: No Hx Malignant Hyperthermia: No Meds Allergies/Adverse Reactions: Allergies Allergy/AdvReac Type Severity Reaction Status Date / Time nickel Allergy RASH Verified 06/22/18 10:07 - Medications Medications: Current Medications Albuterol (Ventolin Hfa 90 Mcg/Actuation (8 G)) 1 puff IH Q6H PRN PRN Reason: Shortness of Breath Aspirin (Ecotrin) 81 mg PO DAILY [facility] Last Admin: 07/23/18 09:04 Dose: Not Given Docusate Sodium (Colace) 100 mg PO DAILY [facility] Last Admin: 07/23/18 09:04 Dose: Not Given Enoxaparin Sodium (Lovenox) 40 mg SC DAILY [facility] Last Admin: 07/22/18 09:26 Dose: 40 mg Piperacillin Sod/Tazobactam Sod (Zosyn 3.375 Gm Iv Premix) 3.375 gm in 50 mls @ 100 mls/hr IVPB Q6H [facility]; Protocol Last Admin: 07/23/18 05:12 Dose: 100 mls/hr Magnesium Hydroxide (Milk Of Magnesia) 30 ml PO DAILY [facility] Last Admin: 07/23/18 09:04 Dose: Not Given Morphine Sulfate (Morphine) 2 mg IVP Q4 PRN PRN Reason: Pain, severe (8-10) Last Admin: 07/22/18 21:46 Dose: 2 mg Nebivolol (Bystolic) 10 mg PO DAILY [facility] Last Admin: 07/23/18 09:03 Dose: Not Given Ondansetron HCl (Zofran Inj) 4 mg IVP Q6H PRN PRN Reason: Nausea/Vomiting Pantoprazole Sodium (Protonix Ec Tab) 40 mg PO DAILY [facility] Last Admin: 07/23/18 09:04 Dose: Not Given Pneumococcal Polyvalent Vaccine (Pneumovax 23 Vaccine) 0.5 ml IM .ONCE ONE Stop: 07/23/18 10:01 Last Admin: 04/13/19 09:04 Dose: Not Given Rosuvastatin Calcium (Crestor) 20 mg PO HS [facility] Last Admin: 07/22/18 21:46 Dose: 20 mg Senna/Docusate Sodium (Senokot S 50 Mg-8.6 Mg) 1 tab PO DAILY [facility] Last Admin: 07/23/18 09:04 Dose: Not Given Physical Exam - Constitutional Appears: Non-toxic, No Acute Distress - Head Exam Head Exam: ATRAUMATIC, NORMOCEPHALIC - Eye Exam Eye Exam: Normal appearance - ENT Exam ENT Exam: Mucous Membranes Moist - Neck Exam Neck exam: Positive for: Normal Inspection - Respiratory Exam Respiratory Exam: Clear to Auscultation Bilateral, NORMAL BREATHING PATTERN. absent: Rales, Rhonchi, Wheezes, Respiratory Distress - Cardiovascular Exam Cardiovascular Exam: REGULAR RHYTHM, +S1, +S2 - GI/Abdominal Exam GI & Abdominal Exam: Normal Bowel Sounds, Soft, Tenderness (lower quad B/L). absent: Diminished Bowel Sounds, Distended, Firm, Guarding, Hernia, Organomegaly, Rebound, Rigid - Neurological Exam Neurological exam: Alert, Oriented x3 - Psychiatric Exam Psychiatric exam: Normal Affect, Normal Mood - Skin Skin Exam: Dry, Intact, Normal Color, Warm Results - Vital Signs Recent Vital Signs: Last Vital Signs Temp 99.2 F 07/23/18 07:27 Pulse 78 07/23/18 07:27 Resp 20 07/23/18 07:27 BP 122/75 07/23/18 07:27 Pulse Ox 95 07/23/18 07:27 - Labs Result Diagrams: 07/23/18 07:44 07/23/18 07:44 Labs: Laboratory Results - last 24 hr 07/22/18 07/23/18 07/23/18 07:45 07:44 07:44 WBC 12.8 H RBC 4.58 Hgb 13.2 Hct 39.9 MCV 87.0 MCH 28.9 MCHC 33.2 RDW 13.3 Plt Count 205 MPV 8.4 Neut % (Auto) 85.4 H Lymph % (Auto) 7.8 L [place] % (Auto) 5.9 Eos % (Auto) 0.5 Baso % (Auto) 0.4 Neut # (Auto) 11.0 H Lymph # (Auto) 1.0 [place] # (Auto) 0.8 Eos # (Auto) 0.1 Baso # (Auto) 0.1 Neutrophils % (Manual) 84 H Lymphocytes % (Manual) 8 L Reactive Lymphs % 1 H Monocytes % (Manual) 7 Platelet Estimate Normal Sodium 134 Potassium 3.6 Chloride 100 Carbon Dioxide 28 Anion Gap 10 BUN 14 Creatinine 1.0 Est GFR ( Amer) > 60 Est GFR (Non-Af Amer) > 60 Random Glucose 107 Calcium 8.9 Total Bilirubin 0.9 GGT 148 H AST 69 H D ALT 112 H D Alkaline Phosphatase 165 H D Total Protein 6.2 L Albumin 3.5 Globulin 2.7 Albumin/Globulin Ratio 1.3 Lipase 90 Assessment & Plan - Assessment and Plan (Free Text) Assessment: Demetrio Stovall is a 63M w/ hx of HTN, HL who presented to the ED with sig abd pain s/p oupt Lap rosa. Pt noted that he was recently discharged on 07/18/2018, following the procedure. Abd pain etiology unclear; DDx: post op ileus, lap rosa complication?, dyspepsia, IBS Constipation, likely post op ileus s/p Lap rosa elevated LFTs, etiology unclear, will send for hep panel; would like previous labs prior to procedure GERD? Plan: -Continue Protonix 40mg PO daily for now -start diet as tolerated to goal as per surgery -start miralax daily at bedtime -abx as per primary team -will send for hep panel, ABY, AMA, ASM, ceruloplasm, Total IGG -continue to monitor LFTs -if pt is still symptomatic will consider EGD as an oupt -continue PPI as an outpt d/w Dr. Rogers <Eduardo Rogers - Last Filed: 07/23/18 11:46> Meds - Medications Medications: Current Medications Albuterol (Ventolin Hfa 90 Mcg/Actuation (8 G)) 1 puff IH Q6H PRN PRN Reason: Shortness of Breath Aspirin (Ecotrin) 81 mg PO DAILY [facility] Last Admin: 07/23/18 09:04 Dose: Not Given Docusate Sodium (Colace) 100 mg PO DAILY [facility] Last Admin: 07/23/18 09:04 Dose: Not Given Enoxaparin Sodium (Lovenox) 40 mg SC DAILY [facility] Last Admin: 07/22/18 09:26 Dose: 40 mg Piperacillin Sod/Tazobactam Sod (Zosyn 3.375 Gm Iv Premix) 3.375 gm in 50 mls @ 100 mls/hr IVPB Q6H [facility]; Protocol Last Admin: 07/23/18 10:48 Dose: 100 mls/hr Magnesium Hydroxide (Milk Of Magnesia) 30 ml PO DAILY [facility] Last Admin: 07/23/18 09:04 Dose: Not Given Morphine Sulfate (Morphine) 2 mg IVP Q4 PRN PRN Reason: Pain, severe (8-10) Last Admin: 07/22/18 21:46 Dose: 2 mg Nebivolol (Bystolic) 10 mg PO DAILY [facility] Last Admin: 07/23/18 09:03 Dose: Not Given Ondansetron HCl (Zofran Inj) 4 mg IVP Q6H PRN PRN Reason: Nausea/Vomiting Pantoprazole Sodium (Protonix Ec Tab) 40 mg PO DAILY [facility] Last Admin: 07/23/18 09:04 Dose: Not Given Rosuvastatin Calcium (Crestor) 20 mg PO HS [facility] Last Admin: 07/22/18 21:46 Dose: 20 mg Senna/Docusate Sodium (Senokot S 50 Mg-8.6 Mg) 1 tab PO DAILY [facility] Last Admin: 07/23/18 09:04 Dose: Not Given Results - Vital Signs Recent Vital Signs: Last Vital Signs Temp 99.2 F 07/23/18 07:27 Pulse 78 07/23/18 07:27 Resp 20 07/23/18 07:27 BP 122/75 07/23/18 07:27 Pulse Ox 95 07/23/18 07:27 - Labs Result Diagrams: 07/23/18 07:44 07/23/18 07:44 Labs: Laboratory Results - last 24 hr 07/23/18 07/23/18 07/23/18 07:44 07:44 09:57 WBC 12.8 H RBC 4.58 Hgb 13.2 Hct 39.9 MCV 87.0 MCH 28.9 MCHC 33.2 RDW 13.3 Plt Count 205 MPV 8.4 Neut % (Auto) 85.4 H Lymph % (Auto) 7.8 L [place] % (Auto) 5.9 Eos % (Auto) 0.5 Baso % (Auto) 0.4 Neut # (Auto) 11.0 H Lymph # (Auto) 1.0 [place] # (Auto) 0.8 Eos # (Auto) 0.1 Baso # (Auto) 0.1 Neutrophils % (Manual) 84 H Lymphocytes % (Manual) 8 L Monocytes % (Manual) 6 Eosinophils % (Manual) 2 Platelet Estimate Normal RBC Morphology Normal Sodium 134 Potassium 3.6 Chloride 100 Carbon Dioxide 28 Anion Gap 10 BUN 14 Creatinine 1.0 Est GFR ( Amer) > 60 Est GFR (Non-Af Amer) > 60 Random Glucose 107 Calcium 8.9 Total Bilirubin 0.9 GGT 148 H AST 69 H D ALT 112 H D Alkaline Phosphatase 165 H D Total Protein 6.2 L Albumin 3.5 Globulin 2.7 Albumin/Globulin Ratio 1.3 Lipase 90 IgG Hepatitis A IgM Ab Negative Hep Bs Antigen Negative Hep B Core IgM Ab Negative Hepatitis C Antibody Negative 07/23/18 09:57 WBC RBC Hgb Hct MCV MCH MCHC RDW Plt Count MPV Neut % (Auto) Lymph % (Auto) [place] % (Auto) Eos % (Auto) Baso % (Auto) Neut # (Auto) Lymph # (Auto) [place] # (Auto) Eos # (Auto) Baso # (Auto) Neutrophils % (Manual) Lymphocytes % (Manual) Monocytes % (Manual) Eosinophils % (Manual) Platelet Estimate RBC Morphology Sodium Potassium Chloride Carbon Dioxide Anion Gap BUN Creatinine Est GFR ( Amer) Est GFR (Non-Af Amer) Random Glucose Calcium Total Bilirubin GGT AST ALT Alkaline Phosphatase Total Protein Albumin Globulin Albumin/Globulin Ratio Lipase IgG 698.0 L Hepatitis A IgM Ab Hep Bs Antigen Hep B Core IgM Ab Hepatitis C Antibody Attending/Attestation - Attestation I have personally seen and examined this patient.: Yes I have fully participated in the care of the patient.: Yes I have reviewed all pertinent clinical information: Yes Notes (Text): 07/23/18 11:28 patient seen and examined with PGY5 fellow. Patient feeling better and abdominal exam is benign with well healing trochar sites. No rebound or tenderness and NABS. Reports pain more across lower abdomen which may correlate with some of the peritoneal fluid that was seen on CT Scan and may be related to lavage and retrieval of stones and bile noted during the operative note and some peritoneal inflammation. Elevation of LFT's could be related to the current antibiotic usage but he may have underlying NAFLD. Doubt CBD stone. Rec/ Viral and autoimmune markers of CLD Consider d/c antibiotics MRCP if clinically indicated. Continue Protonix. See no need for EGD at this time. Out patient follow up if able to tolerate a diet.
[2018-07-23] MEDS ORDERED: Pneumococcal 23-Valent Vaccine IM ONE (10:00)
[2018-07-23] MEDS ORDERED: Influenza Vaccine 60 mcg/0.5 mL SYR (4YR UP) IM ONE (10:00)
[2018-07-23 10:06] LABS: EOSINOPHIL 2 % (0-4); LYMPHOCYTE 8 % (20-40); MONOCYTE 6 % (0-10); NEUTROPHIL 84 % (50-75); PLATELET ESTIMATE NORMAL (NORMAL); TOTAL CELLS COUNTED 100
[2018-07-23 10:38] LABS: HEPATITIS B SURFACE AG Negative (NEGATIVE)
[2018-07-23 10:43] LABS: HEPATITIS A IGM NEGATIVE (NEGATIVE); HEPATITIS B CORE AB NEGATIVE (NEGATIVE)
[2018-07-23 10:55] LABS: HEPATITIS C ANTIBODY NEGATIVE (NEGATIVE)
[2018-07-23] MEDS ORDERED: Gadodiamide 287 MG/ML VIAL (15ML) IV ONE (14:45)
--- NOTE | 2018-07-23 17:41 | CP.PCM.PN ---
Subjective - Date & Time of Evaluation Date of Evaluation: 07/23/18 Time of Evaluation: 07:20 - Subjective Subjective: General Surgery: Stuart Patient seen and examined this am at bedside. No acute events overnight per nursing. Patient to have MRCP today. endorses improvement in pain and denies association with meals. deneis n/v, f/v overnight endorses BM and flatus Objective - Vital Signs/Intake and Output Vital Signs (last 24 hours): Temp Pulse Resp BP Pulse Ox 99.4 F 82 20 125/78 93 L 07/23/18 15:00 07/23/18 15:00 07/23/18 15:00 07/23/18 15:00 07/23/18 15:00 - Medications Medications: Current Medications Albuterol (Ventolin Hfa 90 Mcg/Actuation (8 G)) 1 puff IH Q6H PRN PRN Reason: Shortness of Breath Aspirin (Ecotrin) 81 mg PO DAILY [facility] Last Admin: 07/23/18 09:04 Dose: Not Given Docusate Sodium (Colace) 100 mg PO DAILY [facility] Last Admin: 07/23/18 09:04 Dose: Not Given Enoxaparin Sodium (Lovenox) 40 mg SC DAILY [facility] Last Admin: 07/22/18 09:26 Dose: 40 mg Ketorolac Tromethamine (Toradol) 30 mg IVP Q6 PRN PRN Reason: Pain, moderate (4-7) Magnesium Hydroxide (Milk Of Magnesia) 30 ml PO DAILY [facility] Last Admin: 07/23/18 09:04 Dose: Not Given Morphine Sulfate (Morphine) 2 mg IVP Q4 PRN PRN Reason: Pain, severe (8-10) Last Admin: 07/22/18 21:46 Dose: 2 mg Nebivolol (Bystolic) 10 mg PO DAILY [facility] Last Admin: 07/23/18 09:03 Dose: Not Given Ondansetron HCl (Zofran Inj) 4 mg IVP Q6H PRN PRN Reason: Nausea/Vomiting Pantoprazole Sodium (Protonix Ec Tab) 40 mg PO DAILY [facility] Last Admin: 07/23/18 09:04 Dose: Not Given Rosuvastatin Calcium (Crestor) 20 mg PO [facility] Last Admin: 07/22/18 21:46 Dose: 20 mg Senna/Docusate Sodium (Senokot S 50 Mg-8.6 Mg) 1 tab PO DAILY [facility] Last Admin: 07/23/18 09:04 Dose: Not Given - Labs Labs: 07/23/18 07:44 07/23/18 07:44 - Constitutional Appears: Well, Non-toxic, No Acute Distress - Head Exam Head Exam: ATRAUMATIC, NORMOCEPHALIC - Eye Exam Eye Exam: EOMI - ENT Exam ENT Exam: Mucous Membranes Moist - Respiratory Exam Respiratory Exam: NORMAL BREATHING PATTERN - Cardiovascular Exam Cardiovascular Exam: REGULAR RHYTHM - GI/Abdominal Exam GI & Abdominal Exam: Soft, Tenderness (mild diffuse). absent: Guarding Additional comments: incisions cdi - Neurological Exam Neurological Exam: Alert, Awake, Oriented x3 - Psychiatric Exam Psychiatric exam: Normal Affect, Normal Mood - Skin Skin Exam: Dry, Intact, Normal Color, Warm Additional comments: incision cdi Assessment and Plan - Assessment and Plan (Free Text) Assessment: 63 yr old male s/p Lap Luz with IOC 07/18, POD 5, returned to Hospital for abdominal pain Plan: - diet as tolerated - am labs and LFTs - monitor Bowel function - pain control - f/u MRCP results - discussed with Dr. Stuart Marrero, PGY 1
[2018-07-24] MEDS ORDERED: Propofol 10 mg/ml Inj (20 ML) ONE (09:00)
[2018-07-24 09:11] LABS: BASO % 0.2 % (0.0-2.0); EOS # 0.1 K/uL (0.0-0.7); EOS % 0.8 % (0.0-4.0); HEMOGLOBIN 13.1 g/dL (12.0-18.0); LYMPH # 0.9 K/uL (1.0-4.3); LYMPH % 7.3 % (20.0-40.0); MEAN CELL VOLUME 86.2 fL (80.0-94.0); MEAN CORPUSCULAR HEMOGLOBIN 28.8 pg (27.0-31.0); MEAN CORPUSCULAR HGB CONC 33.5 g/dL (33.0-37.0); MEAN PLATELET VOLUME 8.5 fL (7.2-11.7); MONO # 0.8 K/uL (0.0-0.8); MONO % 6.7 % (0.0-10.0); NEUT # 10.4 K/uL (1.8-7.0); PLATELET COUNT 223 K/uL (130-400); RBC 4.55 Mil/uL (4.40-5.90); RED CELL DISTRIBUTION WIDTH 13.5 % (11.5-14.5); WHITE BLOOD COUNT 12.2 K/uL (4.8-10.8)
[2018-07-24] MEDS ORDERED: Albuterol HFA 90 mcg/actuation (8 g) ONE (09:32)
[2018-07-24 09:37] LABS: ALB/GLOB RATIO 1.2 (1.0-2.1); ALBUMIN 3.6 g/dL (3.5-5.0); ALT/SGPT 125 U/L (21-72); AST/SGOT 79 U/L (17-59); BLOOD UREA NITROGEN 21 mg/dL (9-20); CALCIUM 9.2 mg/dl (8.6-10.4); GFR NON-AFRICAN AMERICAN > 60
--- NOTE | 2018-07-24 09:40 | CP.PCM.PN ---
<Aicha Vila - Last Filed: 07/24/18 10:05> Subjective - Date & Time of Evaluation Date of Evaluation: 07/24/18 Time of Evaluation: 09:20 - Subjective Subjective: PGY 5 GI Follow-up Pt Seen and examined in the Am bedside Pt went for EGD today in the AM Was NPO overnight still had abd discomfort Denies any change in BM Denies any fever, chills or Diaphoresis ROS: 12 point ROS conducted, neg other than above Objective - Vital Signs/Intake and Output Vital Signs (last 24 hours): Temp Pulse Resp BP Pulse Ox 98.9 F 84 20 119/72 96 07/23/18 23:34 07/23/18 23:34 07/23/18 23:34 07/23/18 23:34 07/23/18 23:34 Intake and Output: 07/24/18 07/24/18 06:59 18:59 Intake Total 0 Balance 0 - Medications Medications: Current Medications Albuterol (Ventolin Hfa 90 Mcg/Actuation (8 G)) 1 puff IH Q6H PRN PRN Reason: Shortness of Breath Aspirin (Ecotrin) 81 mg PO DAILY [facility] Last Admin: 07/23/18 09:04 Dose: Not Given Docusate Sodium (Colace) 100 mg PO DAILY [facility] Last Admin: 07/23/18 09:04 Dose: Not Given Enoxaparin Sodium (Lovenox) 40 mg SC DAILY [facility] Last Admin: 07/22/18 09:26 Dose: 40 mg Ketorolac Tromethamine (Toradol) 30 mg IVP Q6 PRN PRN Reason: Pain, moderate (4-7) Last Admin: 07/23/18 17:37 Dose: 30 mg Magnesium Hydroxide (Milk Of Magnesia) 30 ml PO DAILY [facility] Last Admin: 07/23/18 09:04 Dose: Not Given Morphine Sulfate (Morphine) 2 mg IVP Q4 PRN PRN Reason: Pain, severe (8-10) Last Admin: 07/22/18 21:46 Dose: 2 mg Nebivolol (Bystolic) 10 mg PO DAILY [facility] Last Admin: 07/23/18 09:03 Dose: Not Given Ondansetron HCl (Zofran Inj) 4 mg IVP Q6H PRN PRN Reason: Nausea/Vomiting Pantoprazole Sodium (Protonix Ec Tab) 40 mg PO DAILY [facility] Last Admin: 07/23/18 09:04 Dose: Not Given Rosuvastatin Calcium (Crestor) 20 mg PO HS [facility] Last Admin: 07/23/18 21:16 Dose: 20 mg Senna/Docusate Sodium (Senokot S 50 Mg-8.6 Mg) 1 tab PO DAILY [facility] Last Admin: 07/23/18 09:04 Dose: Not Given - Labs Labs: 07/24/18 08:55 07/23/18 07:44 - Constitutional Appears: Non-toxic, No Acute Distress - Head Exam Head Exam: ATRAUMATIC, NORMOCEPHALIC - Eye Exam Eye Exam: Normal appearance - ENT Exam ENT Exam: Mucous Membranes Moist - Neck Exam Neck Exam: Normal Inspection - Respiratory Exam Respiratory Exam: Clear to Ausculation Bilateral, NORMAL BREATHING PATTERN. absent: Rales, Rhonchi, Wheezes - Cardiovascular Exam Cardiovascular Exam: REGULAR RHYTHM, +S1, +S2 - GI/Abdominal Exam GI & Abdominal Exam: Soft, Tenderness (Periumbilical), Normal Bowel Sounds. absent: Distended, Firm, Guarding, Rigid, Organomegaly, Rebound Additional comments: x3 laproscoptic incisions; non-indurated and covered; no leaking - Extremities Exam Extremities Exam: absent: Joint Swelling, Pedal Edema - Neurological Exam Neurological Exam: Alert, Awake, Oriented x3 - Psychiatric Exam Psychiatric exam: Normal Affect, Normal Mood - Skin Skin Exam: Dry, Intact, Normal Color, Warm Assessment and Plan - Assessment and Plan (Free Text) Assessment: Demetrio Stovall is a 63M w/ hx of HTN, HL who presented to the ED with sig abd pain s/p oupt Lap rosa. Pt noted that he was recently discharged on 07/18/2018, following the procedure. *EGD Finding 07/24/18: erosive esophagitis, fundic gland poylp (s/p 1 polypectomy for path) etiology likely 2/2 chronic PPI use; normal duodenum Abd pain etiology unclear; DDx: post op ileus, lap rosa complication?, dyspepsia, IBS Constipation, likely post op ileus s/p Lap rosa elevated LFTs, etiology unclear, will send for hep panel; chronic hep w/u pe nding; DDx: antibiotics; MRCP neg for dilatation GERD? Plan: -Continue Protonix 40mg PO daily for now -advance diet to bland, non-lactate -continue to monitor LFTs, considering abx; discontinued yesterday, continue to monitor -will need repeat LFTs in the AM -would advise to keep at least one more day to monitor LFTs -no other procedures planned at this time -recommended pt follow-up with Dr. Rogers as an outpt. d/w Dr. Rogers <Eduardo Rogers - Last Filed: 07/24/18 10:08> Objective - Vital Signs/Intake and Output Vital Signs (last 24 hours): Temp Pulse Resp BP Pulse Ox 98.4 F 85 20 122/74 99 07/24/18 09:52 07/24/18 09:55 07/24/18 09:55 07/24/18 09:55 07/24/18 09:55 Intake and Output: 07/24/18 07/24/18 06:59 18:59 Intake Total 300 Balance 300 - Medications Medications: Current Medications Albuterol (Ventolin Hfa 90 Mcg/Actuation (8 G)) 1 puff IH Q6H PRN PRN Reason: Shortness of Breath Aspirin (Ecotrin) 81 mg PO DAILY [facility] Last Admin: 07/23/18 09:04 Dose: Not Given Docusate Sodium (Colace) 100 mg PO DAILY [facility] Last Admin: 07/23/18 09:04 Dose: Not Given Enoxaparin Sodium (Lovenox) 40 mg SC DAILY [facility] Last Admin: 07/22/18 09:26 Dose: 40 mg Ketorolac Tromethamine (Toradol) 30 mg IVP Q6 PRN PRN Reason: Pain, moderate (4-7) Last Admin: 07/23/18 17:37 Dose: 30 mg Magnesium Hydroxide (Milk Of Magnesia) 30 ml PO DAILY [facility] Last Admin: 07/23/18 09:04 Dose: Not Given Morphine Sulfate (Morphine) 2 mg IVP Q4 PRN PRN Reason: Pain, severe (8-10) Last Admin: 07/22/18 21:46 Dose: 2 mg Nebivolol (Bystolic) 10 mg PO DAILY [facility] Last Admin: 07/23/18 09:03 Dose: Not Given Ondansetron HCl (Zofran Inj) 4 mg IVP Q6H PRN PRN Reason: Nausea/Vomiting Pantoprazole Sodium (Protonix Ec Tab) 40 mg PO DAILY [facility] Last Admin: 07/23/18 09:04 Dose: Not Given Rosuvastatin Calcium (Crestor) 20 mg PO HS [facility] Last Admin: 07/23/18 21:16 Dose: 20 mg Senna/Docusate Sodium (Senokot S 50 Mg-8.6 Mg) 1 tab PO DAILY [facility] Last Admin: 07/23/18 09:04 Dose: Not Given - Labs Labs: 07/24/18 08:55 07/24/18 08:55 Attending/Attestation - Attestation I have personally seen and examined this patient.: Yes I have fully participated in the care of the patient.: Yes I have reviewed all pertinent clinical information, including history, physical exam and plan: Yes Notes (Text): 07/24/18 10:07 No evidence of duodenal inflammation as reported on MRI yesterday. Erosive gastritis and fundic gland polyps seen. Continue PPI. Repeat LFTs and elevation may continue for several days after discontinuation of offending medication (Zosyn) which was stopped. Advance diet and observe. Out patient follow up with me. Patient seen and examined with GI Fellow.
--- NOTE | 2018-07-24 09:46 | CP.PCM.PN ---
Subjective - Date & Time of Evaluation Date of Evaluation: 07/24/18 Time of Evaluation: 07:00 - Subjective Subjective: Surgery: Dr. Davidson Patient feeling some better today. denies n/v. Pain somewhat improved. Patient for EGD today. Objective - Vital Signs/Intake and Output Vital Signs (last 24 hours): Temp Pulse Resp BP Pulse Ox 98.9 F 84 20 119/72 96 07/23/18 23:34 07/23/18 23:34 07/23/18 23:34 07/23/18 23:34 07/23/18 23:34 Intake and Output: 07/24/18 07/24/18 06:59 18:59 Intake Total 300 Balance 300 - Medications Medications: Current Medications Albuterol (Ventolin Hfa 90 Mcg/Actuation (8 G)) 1 puff IH Q6H PRN PRN Reason: Shortness of Breath Aspirin (Ecotrin) 81 mg PO DAILY [facility] Last Admin: 07/23/18 09:04 Dose: Not Given Docusate Sodium (Colace) 100 mg PO DAILY [facility] Last Admin: 07/23/18 09:04 Dose: Not Given Enoxaparin Sodium (Lovenox) 40 mg SC DAILY [facility] Last Admin: 07/22/18 09:26 Dose: 40 mg Ketorolac Tromethamine (Toradol) 30 mg IVP Q6 PRN PRN Reason: Pain, moderate (4-7) Last Admin: 07/23/18 17:37 Dose: 30 mg Magnesium Hydroxide (Milk Of Magnesia) 30 ml PO DAILY [facility] Last Admin: 07/23/18 09:04 Dose: Not Given Morphine Sulfate (Morphine) 2 mg IVP Q4 PRN PRN Reason: Pain, severe (8-10) Last Admin: 07/22/18 21:46 Dose: 2 mg Nebivolol (Bystolic) 10 mg PO DAILY [facility] Last Admin: 07/23/18 09:03 Dose: Not Given Ondansetron HCl (Zofran Inj) 4 mg IVP Q6H PRN PRN Reason: Nausea/Vomiting Pantoprazole Sodium (Protonix Ec Tab) 40 mg PO DAILY [facility] Last Admin: 07/23/18 09:04 Dose: Not Given Rosuvastatin Calcium (Crestor) 20 mg PO [facility] Last Admin: 07/23/18 21:16 Dose: 20 mg Senna/Docusate Sodium (Senokot S 50 Mg-8.6 Mg) 1 tab PO DAILY [facility] Last Admin: 07/23/18 09:04 Dose: Not Given - Labs Labs: 07/24/18 08:55 07/24/18 08:55 - Constitutional Appears: Non-toxic, No Acute Distress - Head Exam Head Exam: ATRAUMATIC, NORMOCEPHALIC - Eye Exam Eye Exam: EOMI, Normal appearance - ENT Exam ENT Exam: Mucous Membranes Moist - Respiratory Exam Respiratory Exam: NORMAL BREATHING PATTERN. absent: Respiratory Distress - Cardiovascular Exam Cardiovascular Exam: REGULAR RHYTHM. absent: Tachycardia - GI/Abdominal Exam GI & Abdominal Exam: Soft. absent: Distended, Guarding, Tenderness, Rebound Assessment and Plan - Assessment and Plan (Free Text) Assessment: 63 yr old male s/p Lap Luz with IOC 07/18 with abdominal pain Plan: -EGD showed gastric erosions extensive -f/u biopsies -cont protonix -resume diet post EGD -further recs per Dr. Stuart Bill PGY4
[2018-07-24 10:29] LABS: EOSINOPHIL 2 % (0-4); LYMPHOCYTE 6 % (20-40); MONOCYTE 6 % (0-10); NEUTROPHIL 86 % (50-75); TOTAL CELLS COUNTED 100
[2018-07-24 10:30] LABS: PLATELET ESTIMATE NORMAL (NORMAL)
[2018-07-24] MEDS: Magnesium Hydroxide Susp 30 ml UD PO SCH (10:46)
[2018-07-24] MEDS: Pantoprazole 40 mg EC Tab PO SCH (10:46)
[2018-07-24] MEDS: Docusate-Senna 50 mg-8.6 mg Tab PO SCH (10:48)
[2018-07-24 15:51] VITALS: RESP 20
[2018-07-24] MEDS ORDERED: Docusate-Senna 50 mg-8.6 mg Tab PO ONE (19:03)
--- NOTE | 2018-07-25 07:46 | CP.PCM.PN ---
<Aicha Vila - Last Filed: 07/25/18 12:28> Subjective - Date & Time of Evaluation Date of Evaluation: 07/25/18 Time of Evaluation: 07:00 - Subjective Subjective: PGY5 GI Follow-up for Dr. Rogers Pt seen and examined bedside Notes improvement in abd pain but still present Pt notes have nausea and emesis of whole food after dinner last night Denies any fever, chills or diaphoresis ROS: 12 point ROS conducted, neg other than above Objective - Vital Signs/Intake and Output Vital Signs (last 24 hours): Temp Pulse Resp BP Pulse Ox 98.7 F 94 H 20 104/67 96 07/25/18 04:43 07/24/18 23:39 07/24/18 23:39 07/24/18 23:39 07/24/18 23:39 - Medications Medications: Current Medications Albuterol (Ventolin Hfa 90 Mcg/Actuation (8 G)) 1 puff IH Q6H PRN PRN Reason: Shortness of Breath Aspirin (Ecotrin) 81 mg PO DAILY [facility] Last Admin: 07/24/18 10:47 Dose: 81 mg Docusate Sodium (Colace) 100 mg PO DAILY [facility] Last Admin: 07/24/18 10:49 Dose: Not Given Enoxaparin Sodium (Lovenox) 40 mg SC DAILY [facility] Last Admin: 07/22/18 09:26 Dose: 40 mg Ketorolac Tromethamine (Toradol) 30 mg IVP Q6 PRN PRN Reason: Pain, moderate (4-7) Last Admin: 07/24/18 22:32 Dose: 30 mg Magnesium Hydroxide (Milk Of Magnesia) 30 ml PO DAILY [facility] Last Admin: 07/24/18 10:46 Dose: 30 ml Nebivolol (Bystolic) 10 mg PO DAILY [facility] Last Admin: 07/24/18 10:48 Dose: 10 mg Ondansetron HCl (Zofran Inj) 4 mg IVP Q6H PRN PRN Reason: Nausea/Vomiting Last Admin: 07/24/18 20:40 Dose: 4 mg Pantoprazole Sodium (Protonix Ec Tab) 40 mg PO DAILY [facility] Last Admin: 07/24/18 10:46 Dose: 40 mg Rosuvastatin Calcium (Crestor) 20 mg PO [facility] Last Admin: 07/24/18 22:32 Dose: 20 mg Senna/Docusate Sodium (Senokot S 50 Mg-8.6 Mg) 1 tab PO DAILY [facility] Last Admin: 07/24/18 10:48 Dose: Not Given - Labs Labs: 07/24/18 08:55 07/24/18 08:55 - Constitutional Appears: Non-toxic, No Acute Distress - Head Exam Head Exam: ATRAUMATIC, NORMOCEPHALIC - Eye Exam Eye Exam: Normal appearance - ENT Exam ENT Exam: Mucous Membranes Moist - Neck Exam Neck Exam: Normal Inspection - Respiratory Exam Respiratory Exam: Clear to Ausculation Bilateral, NORMAL BREATHING PATTERN. absent: Rales, Rhonchi, Wheezes, Respiratory Distress - Cardiovascular Exam Cardiovascular Exam: REGULAR RHYTHM, +S1, +S2 - GI/Abdominal Exam GI & Abdominal Exam: Soft, Tenderness (periumbilical), Normal Bowel Sounds. absent: Distended, Firm, Guarding, Rigid, Organomegaly, Rebound Additional comments: x3 laproscopic incision sites, clean, non-indurated and no discharge noted - Extremities Exam Extremities Exam: absent: Joint Swelling, Pedal Edema - Neurological Exam Neurological Exam: Alert, Awake, Oriented x3 - Psychiatric Exam Psychiatric exam: Normal Affect, Normal Mood - Skin Skin Exam: Dry, Intact, Normal Color, Warm Assessment and Plan - Assessment and Plan (Free Text) Assessment: Demetrio Stovall is a 63M w/ hx of HTN, HL who presented to the ED with sig abd pain s/p oupt Lap rosa. Pt noted that he was recently discharged on 07/18/2018, following the procedure. *EGD Finding 07/24/18: erosive esophagitis, fundic gland poylp (s/p 1 polypectomy for path) etiology likely 2/2 chronic PPI use; normal duodenum Abd pain etiology unclear; DDx: post op ileus, lap rosa complication?, dyspepsia, IBS Constipation, likely post op ileus s/p Lap rosa elevated LFTs, etiology unclear, will send for hep panel; chronic hep w/u pending; DDx: antibiotics; MRCP neg for dilatation GERD? Plan: -Continue Protonix 40mg PO daily for now -advance diet to bland, non-lactate; as tolerated -continue to monitor LFTs, considering abx; discontinued yesterday, continue to monitor; No acute viral hepatitis -repeat LFTs are plateauing, if etiology is 2/2 abx may take a few days to normalize -no other procedures planned at this time -minimize narcotic use, recommend ambulation and PT -recommended pt follow-up with Dr. Rogers as an outpt. d/w Dr. Rogers <Eduardo Rogers - Last Filed: 07/25/18 20:08> Objective - Vital Signs/Intake and Output Vital Signs (last 24 hours): Temp Pulse Resp BP Pulse Ox 99 F 80 20 106/70 95 07/25/18 08:12 07/25/18 08:12 07/25/18 08:12 07/25/18 08:12 07/25/18 08:12 - Labs Labs: 07/25/18 07:59 07/25/18 07:59 Attending/Attestation - Attestation I have personally seen and examined this patient.: Yes I have fully participated in the care of the patient.: Yes I have reviewed all pertinent clinical information, including history, physical exam and plan: Yes Notes (Text): 07/25/18 20:06 Patient seen and examined with Fellow Feeling better today and toleerating diet with mild pain. LFTs appear to have plateaued and Alk Pos is better. Advice advancing diet and discharge to out patient follow up and repeat LFTs in one week. Antibiotics stopped. Follow up with me as outpatient Thank you.
[2018-07-25 08:14] VITALS: BP 106/70; PULSE 80; TEMP 99; O2SAT 95
[2018-07-25 08:16] LABS: BASO % 0.4 % (0.0-2.0); EOS # 0.1 K/uL (0.0-0.7); EOS % 0.8 % (0.0-4.0); HEMOGLOBIN 13.2 g/dL (12.0-18.0); LYMPH # 0.9 K/uL (1.0-4.3); LYMPH % 8.6 % (20.0-40.0); MEAN CELL VOLUME 86.4 fL (80.0-94.0); MEAN CORPUSCULAR HEMOGLOBIN 29.3 pg (27.0-31.0); MEAN CORPUSCULAR HGB CONC 33.9 g/dL (33.0-37.0); MEAN PLATELET VOLUME 8.1 fL (7.2-11.7); MONO # 0.9 K/uL (0.0-0.8); MONO % 8.4 % (0.0-10.0); NEUT # 8.7 K/uL (1.8-7.0); NEUT % 81.8 % (50.0-75.0); PLATELET COUNT 252 K/uL (130-400); RBC 4.51 Mil/uL (4.40-5.90); RED CELL DISTRIBUTION WIDTH 13.8 % (11.5-14.5); WHITE BLOOD COUNT 10.6 K/uL (4.8-10.8)
[2018-07-25 08:31] LABS: ALB/GLOB RATIO 1.1 (1.0-2.1); ALBUMIN 3.5 g/dL (3.5-5.0); ALT/SGPT 141 U/L (21-72); AST/SGOT 78 U/L (17-59); BILIRUBIN,DIRECT 0.4 mg/dL (0.0-0.4); BLOOD UREA NITROGEN 27 mg/dL (9-20); CALCIUM 9.1 mg/dl (8.6-10.4); GAMMA GLUTAMYL TRANSPEPTIDASE 173 U/L (8-78); GFR NON-AFRICAN AMERICAN > 60
[2018-07-25 08:45] LABS: LYMPHOCYTE 7 % (20-40); MONOCYTE 5 % (0-10); NEUTROPHIL 88 % (50-75); PLATELET ESTIMATE NORMAL (NORMAL); TOTAL CELLS COUNTED 100
[2018-07-25] MEDS: Magnesium Hydroxide Susp 30 ml UD PO SCH (10:57)
[2018-07-25] MEDS: Enoxaparin 40 mg Syringe SC SCH (10:58)
[2018-07-25] MEDS: Docusate-Senna 50 mg-8.6 mg Tab PO SCH (10:58)
[2018-07-25] MEDS: Pantoprazole 40 mg EC Tab PO SCH (10:58)
--- NOTE | 2018-07-25 14:35 | MRI ---
MRI abdomen without/with IV contrast MRCP Indication: elevated lfts suspected choledolcholithiasis Technique: Multiplanar, multi sequence magnetic resonance images of the abdomen were obtained without and with the administration of intravenous gadolinium using a multi phase abdomen protocol. Rotating maximum intensity projection images of the biliary system were generated. A total of 1023 images submitted for review Comparison: CT abdomen and pelvis with IV contrast performed 07/20/18 Findings: Several T2 hyperintense hepatic foci appear consistent with cysts. Mild periportal edema. Mild right upper quadrant inflammatory changes/small fluid. Small fluid adjacent to the spleen. Cholecystectomy. There is no intrahepatic biliary ductal dilatation. The common bile duct appears within normal limits in caliber and tapers distally. The pancreatic duct appears within normal limits of caliber. No filling defects are seen in the common bile duct or pancreatic duct. 8 mm probable splenule. The spleen, pancreas, and adrenal glands appear normal. The kidneys enhance symmetrically. No obstructing calculus or hydronephrosis identified. 1.5 cm left upper pole renal cyst. No bulky adenopathy identified. Limited views of the inferior thorax demonstrates small bilateral pleural effusions. Impression: Several T2 hyperintense hepatic foci appear consistent with cysts. Mild periportal edema. Mild right upper quadrant inflammatory changes/small fluid. Small fluid adjacent to the spleen. Cholecystectomy. 1.5 cm left upper pole renal cyst. Small bilateral pleural effusions. Additional findings as above. Preliminary impression was provided by [employer].
--- NOTE | 2018-07-25 17:47 | CP.PCM.DIS ---
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 Referral Routine Comment: Physician Instructions: for eval Reason For Exam: PMH Asthma Social Work Referral Routine Comment: for eval Physician Instructions: Reason For Exam: Macy 7 07/22/18 20:01 Gastroenterology Consult Routine Comment: abdominal pain Consulting Provider: Eduardo Rogers Consulting Physician: Eduardo Rogers Reason for Consult: abdominal pain Time Spent in preparation of Discharge (in minutes): 45 Hospital Course - Lab Results Lab Results: Most Recent Lab Values WBC 10.6 K/uL (4.8-10.8) 07/25/18 07:59 RBC 4.51 Mil/uL (4.40-5.90) 07/25/18 07:59 Hgb 13.2 g/dL (12.0-18.0) 07/25/18 07:59 Hct 39.0 % (35.0-51.0) 07/25/18 07:59 MCV 86.4 fL (80.0-94.0) 07/25/18 07:59 MCH 29.3 pg (27.0-31.0) 07/25/18 07:59 MCHC 33.9 g/dL (33.0-37.0) 07/25/18 07:59 RDW 13.8 % (11.5-14.5) 07/25/18 07:59 Plt Count 252 K/uL (130-400) 07/25/18 07:59 MPV 8.1 fL (7.2-11.7) 07/25/18 07:59 Neut % (Auto) 81.8 % (50.0-75.0) H 07/25/18 07:59 Lymph % (Auto) 8.6 % (20.0-40.0) L 07/25/18 07:59 Latimer % (Auto) 8.4 % (0.0-10.0) 07/25/18 07:59 Eos % (Auto) 0.8 % (0.0-4.0) 07/25/18 07:59 Baso % (Auto) 0.4 % (0.0-2.0) 07/25/18 07:59 Neut # (Auto) 8.7 K/uL (1.8-7.0) H 07/25/18 07:59 Lymph # (Auto) 0.9 K/uL (1.0-4.3) L 07/25/18 07:59 Latimer # (Auto) 0.9 K/uL (0.0-0.8) H 07/25/18 07:59 Eos # (Auto) 0.1 K/uL (0.0-0.7) 07/25/18 07:59 Baso # (Auto) 0.0 K/uL (0.0-0.2) 07/25/18 07:59 Neutrophils % (Manual) 88 % (50-75) H 07/25/18 07:59 Lymphocytes % (Manual) 7 % (20-40) L 07/25/18 07:59 Reactive Lymphs % 1 % (0-0) H 07/22/18 07:45 Monocytes % (Manual) 5 % (0-10) 07/25/18 07:59 Eosinophils % (Manual) 2 % (0-4) 07/24/18 08:55 Platelet Estimate Normal (NORMAL) 07/25/18 07:59 RBC Morphology Normal 07/25/18 07:59 pO2 39 mm/Hg (30-55) 07/20/18 06:20 VBG pH 7.36 (7.32-7.43) 07/20/18 06:20 VBG pCO2 45 mmHg (40-60) 07/20/18 06:20 VBG HCO3 23.9 mmol/L 07/20/18 06:20 VBG Total CO2 26.8 mmol/L (22-28) 07/20/18 06:20 VBG O2 Sat (Calc) 77.7 % (40-65) H 07/20/18 06:20 VBG Base Excess -0.4 mmol/L (0.0-2.0) L 07/20/18 06:20 VBG Potassium 3.7 mmol/L (3.6-5.2) 07/20/18 06:20 Sodium 136.0 mmol/l (132-148) 07/20/18 06:20 Chloride 103.0 mmol/L (98-107) 07/20/18 06:20 Glucose 129 mg/dl (75-110) H 07/20/18 06:20 Lactate 1.7 mmol/L (0.7-2.1) 07/20/18 06:20 Sodium 136 mmol/L (132-148) 07/25/18 07:59 Potassium 4.1 mmol/L (3.6-5.2) 07/25/18 07:59 Chloride 101 mmol/L (98-107) 07/25/18 07:59 Carbon Dioxide 27 mmol/L (22-30) 07/25/18 07:59 Anion Gap 12 (10-20) 07/25/18 07:59 BUN 27 mg/dL (9-20) H 07/25/18 07:59 Creatinine 1.1 mg/dL (0.8-1.5) 07/25/18 07:59 Est GFR ( Amer) > 60 07/25/18 07:59 Est GFR (Non-Af Amer) > 60 07/25/18 07:59 POC Glucose (mg/dL) 119 mg/dL (65-110) H 07/20/18 16:38 Random Glucose 136 mg/dL (75-110) H D 07/25/18 07:59 Calcium 9.1 mg/dl (8.6-10.4) 07/25/18 07:59 Phosphorus 3.0 mg/dL (2.5-4.5) 07/24/18 08:55 Magnesium 2.4 mg/dL (1.6-2.3) H 07/24/18 08:55 Total Bilirubin 0.7 mg/dL (0.2-1.3) 07/25/18 07:59 Direct Bilirubin 0.4 mg/dL (0.0-0.4) 07/25/18 07:59 GGT 173 U/L (8-78) H 07/25/18 07:59 AST 78 U/L (17-59) H 07/25/18 07:59 ALT 141 U/L (21-72) H 07/25/18 07:59 Alkaline Phosphatase 208 U/L (38-126) H 07/25/18 07:59 Total Protein 6.5 g/dL (6.3-8.3) 07/25/18 07:59 Albumin 3.5 g/dL (3.5-5.0) 07/25/18 07:59 Globulin 3.0 gm/dL (2.2-3.9) 07/25/18 07:59 Albumin/Globulin Ratio 1.1 (1.0-2.1) 07/25/18 07:59 Lipase 90 U/L (23-300) 07/23/18 07:44 Venous Blood Potassium 3.7 mmol/L (3.6-5.2) 07/20/18 06:20 Urine Color Yellow (YELLOW) 07/20/18 07:58 Urine Clarity Clear (Clear) 07/20/18 07:58 Urine pH 5.0 (5.0-8.0) 07/20/18 07:58 Ur Specific Whick 1.024 (1.003-1.030) 07/20/18 07:58 Urine Protein 1+ mg/dL (NEGATIVE) H 07/20/18 07:58 Urine Glucose (UA) Normal mg/dL (Normal) 07/20/18 07:58 Urine Ketones 1+ mg/dL (NEGATIVE) H 07/20/18 07:58 Urine Blood 1+ (NEGATIVE) H 07/20/18 07:58 Urine Nitrate Negative (NEGATIVE) 07/20/18 07:58 Urine Bilirubin Negative (NEGATIVE) 07/20/18 07:58 Urine Urobilinogen 2.0 mg/dL (0.2-1.0) 07/20/18 07:58 Ur Leukocyte Esterase Neg Dan[place]/uL (Negative) 07/20/18 07:58 Urine WBC (Auto) 3 /hpf (0-5) 07/20/18 07:58 Urine RBC (Auto) 7 /hpf (0-3) H 07/20/18 07:58 Ur Squamous Epith Cells < 1 /hpf (0-5) 07/20/18 07:58 IgG 698.0 mg/dL (700.0-1600.0) L 07/23/18 09:57 Anti-Mitochondrial Ab Negative (Negative) 07/23/18 13:55 Hepatitis A IgM Ab Negative (NEGATIVE) 07/23/18 09:57 Hepatitis A Ab Total Antibody pos (NEGATIVE) 07/23/18 13:55 Hep Bs Antigen Negative (NEGATIVE) 07/23/18 09:57 Hep B Core IgM Ab Negative (NEGATIVE) 07/23/18 13:55 Hepatitis C Antibody Negative (NEGATIVE) 07/23/18 09:57 - Hospital Course Hospital Course: 63M with PMH that includes s/p lap cholecystectomy, HTN, TIA presents to [facility] for complaint of abd pain. Patient seen and evaluated in the ED. Patient had lap cholecystectomy on 07/18. Patient tolerated procedure without any apparent complications and was discharged home the same day. Patient went home and stated that he developd abd pain yesterday with subjective fever. Patient decided to wait to see if it improved but it did not so he came to the ED. Patient had CT which was unremarkable except for small fluid near spleen (see full report). Labs revealed leukocytosis and elevated total bilirubin. HIDA was ordered. Denies cp, SOB, nausea/vomiting, diarrhea, constipation. During hospital course patient symptoms and chemistry improved. GI was consulted during hospital stay. all recs appreciated and patient continued to improve. Subsequently patient started tolerating diet and was cleared for discharge home in stable condition. Plan to follow up for check up s/p cholecystectomy. For details see progress notes during hospital stay. Discharge Exam - Head Exam Head Exam: ATRAUMATIC, NORMOCEPHALIC - Eye Exam Eye Exam: EOMI. absent: Scleral icterus - ENT Exam ENT Exam: Mucous Membranes Moist - Respiratory Exam Respiratory Exam: NORMAL BREATHING PATTERN. absent: Accessory Muscle Use, Respiratory Distress - GI/Abdominal Exam GI & Abdominal Exam: Soft. absent: Distended, Firm, Guarding, Hernia, Rigid, Tenderness - Neurological Exam Neurological exam: Alert, Oriented x3 - Psychiatric Exam Psychiatric exam: Normal Affect - Skin Skin Exam: Intact, Warm Discharge Plan - Follow Up Plan Condition: FAIR Disposition: HOME/ ROUTINE Instructions: [place] Diet, Acute Abdominal Pain (DC) Additional Instructions: Telephone instructions received by and as follow: - Follow up with in one week -[place] diet as tolerated. Return to emergency room if symptoms suddenly worsens. -No heavy lifting greater than 15lbs for the next two weeks until follow up with at office. . Activity as tolerated Referrals: Emmett Davidson Jr., MD [Staff Provider] -
[2018-07-26 03:21] LABS: CERULOPLASMIN 32 mg/dL (18-36)
--- NOTE | 2018-07-27 12:29 | PQF ---
PROVIDER RESPONSE TEXT: Cause of post op issues Never clearly diagnosed. Most of the usual causes- retained stones, stricture, leak, bowel injury were eventually evaluated an d found not to be the cause By virtue of exclusion, perhaps it was a " post op ileus." LALITHA Davidson REVIEWER QUERY TEXT: Clarification of Clinical Diagnostic Findings Physician?s Documentation Request This Form is Not a Permanent Document in the Medical Record Pt Name: NANDO MENDES MR #: [id number] Payor: [facility] Unit/Bed: [id number]-C368-B Adm Date: 07/20/2018 10:32:00 AM Reviewer: Obdulia Fox Ext. Query Date: 07/26/2018 1:57:00 PM Clarification of Clinical Diagnostic Findings [id number] By submitting this query, we are merely seeking further clarification of documentation to accurately reflect all conditions that you are monitoring, evaluating, treating or that extend the hospitalizati on or utilize additional resources of care. Please utilize your independent clinical judgment when ad dressing the question(s) below. Dear Doctor Emmett Davidson, The patient?s Clinical Indicators include: 63 year old male with PMH that includes S/P lap cholecystectomy on 07/18 , HTN, TIA presents to [facility] for abdominal pain. Progress note 07/25 Eduardo Chan MD - likely post op ileus. Please document if you concur. Please clarify documentation or clinical relevance for the clinical / diagnostic findings or whether those are insignificant or unable to be further specified. PLEASE DOCUMENT ANY ADDITIONAL DIAGNOSES AND/OR SPECIFICITY IN THE PROGRESS NOTES AND/OR DISCHARGE GUSMAN MMARY. Clinically unable to determine/unknown Disagree with the above request Need to discuss Query created by: Obdulia Fxo on 07/26/2018 1:57 PM Electronically signed by: Emmett Davidson MD 07/27/2018 12:25 PM
== END 2018-07-25 14:00 | disposition home or self-care (01) | DRG 394 ==
LOC: C.ER 05:42 → C.9E 10:32 → C.3T 12:42
PROVIDERS: ADMIT Surgery Vascular Surgery; ATTEND Surgery Vascular Surgery
PROC: 0DB68ZX Excision of Stomach, Via Natural or Artificial Opening Endoscopic, Diagnostic (ICD-10-PCS; 2018-07-24)
PROC: 0DB68ZX Excision of Stomach, Via Natural or Artificial Opening Endoscopic, Diagnostic (ICD-10-PCS; principal; 2018-07-24 09:00)
DX: K91.89 Other postprocedural complications and disorders of digestive system (principal); K56.7 Ileus, unspecified; E78.00 Pure hypercholesterolemia, unspecified; G47.30 Sleep apnea, unspecified; J45.909 Unspecified asthma, uncomplicated; Z86.73 Personal history of transient ischemic attack (TIA), and cerebral infarction without residual deficits; D72.829 Elevated white blood cell count, unspecified; K20.8 Other esophagitis; K31.7 Polyp of stomach and duodenum; Y83.8 Other surgical procedures as the cause of abnormal reaction of the patient, or of later complication, without mention of misadventure at the time of the procedure